=== PATIENT | male | born 1980 | race African-American/Black ===

== ENCOUNTER 2018-09-19 15:54 | Inpatient (IN) | payer OTHER ==
[2018-09-19 17:38] VITALS: BMI 20.2
--- NOTE | 2018-09-19 19:00 | HP ---
CIWA Score Nausea/Vomitin Muscle Tremors: 2 Anxiety: 2 Agitation: 2 Paroxysmal Sweats: 1-Minimal Palms Moist Orientation: 0-Oriented Tacttile Disturbances: 1-Very Mild Itch/Numbness Auditory Disturbances: 1-Very Mild Visual Disturbances: 0-None Headache: 2-Mild CIWA-Ar Total Score: 13 - Admission Criteria OASAS Guidelines: Admission for Medically Managed Detox: Requires at least one of the followin. CIWA greater than 12 2. Seizures within the past 24 hours 3. Delirium tremens within the past 24 hours 4. Hallucinations within the past 24 hours 5. Acute intervention needed for co occurring medical disorder 6. Acute intervention needed for co occurring psychiatric disorder 7. Severe withdrawal that cannot be handled at a lower level of care (continued vomiting, continued diarrhea, abnormal vital signs) requiring intravenous medication and/or fluids 8. Patient presents the following: CIWA greater than 12 Admission Criteria Met: Admission criteria met Admission ROS S - [facility] Chief Complaint: i need help to stop drinking alcohol,marijuana,cocaine dependence Allergies/Adverse Reactions: Allergies Allergy/AdvReac Type Severity Reaction Status Date / Time No Known Allergies Allergy Verified 09/19/18 18:48 History of Present Illness: this 38 years old male with alcohol and marijuana dependence,cocaine dependence, seeking detox,never been in detox before syncope nicotine dependence no significant period of sobriety history of wpw,irregularity of heart beat,since 01/28 ,supposed to take asa 325 mgs po daily,non compliance,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 [place] Exam Limitations: No Limitations - Ebola screening Have you traveled outside of the country in the last 21 days: No (N) Have you had contact with anyone from an Ebola affected area: No Have you been sick,other than usual withdrawal symptoms: No Do you have a fever: No - Review of Systems Constitutional: Loss of Appetite, Malaise, Night Sweats, Changes in sleep, Weakness EENT: reports: Nose Congestion Respiratory: reports: No Symptoms reported Cardiac: reports: No Symptoms Reported GI: reports: Nausea, Poor Appetite, Abdominal cramping : reports: No Symptoms Reported Musculoskeletal: reports: Back Pain, Muscle Pain Integumentary: reports: Dryness Neuro: reports: Headache, Tremors Endocrine: reports: No Symptoms Reported Hematology: reports: No Symptoms Reported Psychiatric: reports: No Sypmtoms Reported, Judgement Intact, Mood/Affect Appropiate, Orientated x3 Other Systems: Reviewed and Negative Patient History - Patient Medical History Hx Anemia: No Hx Asthma: No Hx Chronic Obstructive Pulmonary Disease (COPD): No Hx Cancer: No Hx Cardiac Disorders: No Hx Congestive Heart Failure: No Hx Hypertension: No Hx Hypercholesterolemia: No Hx Pacemaker: No HX Cerebrovascular Accident: No Hx Seizures: No Hx Dementia: No Hx Diabetes: No Hx Gastrointestinal Disorders: No Hx Sexually Transmitted Disorders: No Hx Renal Disease (ESRD): No Hx Thyroid Disease: No Hx Human Immunodeficiency Virus (HIV): No (last hiv test 10/02 negative) Hx Hepatitis C: No Hx Depression: No Hx Suicide Attempt: No Hx Bipolar Disorder: No Hx Schizophrenia: No Other Medical History: no suicidal,no homicidal - Patient Surgical History Past Surgical History: No - PPD History Previous Implant?: Yes Documented Results: Negative w/o proof Implanted On Prior [facility] Admission?: No PPD to be Administered?: Yes - Smoking Cessation Smoking history: Current every day smoker Have you smoked in the past 12 months: Yes Aproximately how many cigarettes per day: 5 Cigars Per Day: 0 Hx Chewing Tobacco Use: No Initiated information on smoking cessation: Yes 'Breaking Loose' booklet given: 09/19/18 - Substance & Tx. History Hx Alcohol Use: Yes Hx Substance Use: Yes Substance Use Type: Alcohol, Cocaine, Marijuana Hx Substance Use Treatment: No - Substances Abused Alcohol Route: Oral Frequency: Daily Amount used: LIQUOR- 4 PINTS Age of first use: 36 Date of Last Use: 09/19/18 Marijuana/Hashish Route: Smoking Frequency: Daily Amount used: 7 JOINTS Age of first use: 19 Date of Last Use: 09/19/18 Cocaine Route: Inhalation Frequency: 1-3 times last 30 days Amount used: 20$ Age of first use: 38 Date of Last Use: 09/18/18 Family Disease History - Family Disease History Family History: Denies Admission Physical Exam BHS - Vital Signs Vital Signs: Vital Signs - 24 hr 09/19/18 17:35 Temperature 98.1 F Pulse Rate 86 Respiratory 18 Rate Blood Pressure 143/86 - Physical General Appearance: Yes: Moderate Distress, Tremorous, Irritable, Sweating, Anxious HEENTM: Yes: Normal ENT Inspection, MIGUEL A, Pharynx Normal Respiratory: Yes: Lungs Clear, Normal Breath Sounds, No Respiratory Distress Neck: Yes: Within Normal Limits, Supple, Trachea in good position Breast: Yes: Within Normal Limits Cardiology: Yes: Within Normal Limits, Regular Rhythm, Regular Rate, S1, S2 Abdominal: Yes: Within Normal Limits, Normal Bowel Sounds, Non Tender, Flat, Soft Genitourinary: Yes: Within Normal Limits Back: Yes: Within Normal Limits, Normal Inspection, Muscle Spasm Musculoskeletal: Yes: Back pain, Muscle Pain Extremities: Yes: Within Normal Limits, Tremors Neurological: Yes: rapid outsole stitcher II-XII NML intact, Fully Oriented, Alert, Motor Strength 5/5 Integumentary: Yes: Dry Lymphatic: Yes: Within Normal Limits - Diagnostic (1) Alcohol dependence with uncomplicated withdrawal Current Visit: Yes Status: Acute (2) Cannabis dependence Current Visit: Yes Status: Acute (3) Cocaine abuse Current Visit: Yes Status: Acute (4) Syncope Current Visit: Yes Status: Acute (5) Nicotine dependence Current Visit: Yes Status: Acute (6) History of Fcaok-Xypaahibs-Ybggc (WPW) syndrome Current Visit: Yes Status: Acute Cleared for Admission [facility] - Detox or Rehab [facility] Level of Care: Medically Managed Detox Regimen/Protocol: Librium [facility] Breath Alcohol Content Breath Alcohol Content: 0.240 Urine Drug Screen - Results Drug Screen Negative: No Urine Drug Screen Results: THC-Marijuana, SIMEON-Cocaine
[2018-09-19] MEDS ORDERED: NICOTINE POLACRILEX 2 MG GUM BC PRN (19:17)
[2018-09-19] MEDS ORDERED: guaiFENesin/D-METHORPHAN HB 10 ML UNIT-DOSE CUPS PO PRN (19:17)
[2018-09-19] MEDS ORDERED: MAGNESIUM CITRATE 300 ML BOTTLE PO PRN (19:17)
[2018-09-19] MEDS ORDERED: ACETAMINOPHEN 325 MG TABLET (FP) PO PRN (19:17)
[2018-09-19] MEDS ORDERED: IBUPROFEN 400 MG TABLET (FP) PO PRN (19:17)
[2018-09-19] MEDS ORDERED: MAG HYDROX/AL HYDROX/SIMETH 30 ML UNIT-DOSE CUP PO PRN (19:17)
[2018-09-19] MEDS ORDERED: MENTHOL/PHENOL 1 EACH UD MM PRN (19:17)
[2018-09-19] MEDS ORDERED: LOPERAMIDE HCL 2 MG CAPSULE PO PRN (19:17)
[2018-09-19] MEDS ORDERED: MAGNESIUM HYDROX 2400MG/30ML ORAL SUSPENSION 30 ML CUP PO PRN (19:17)
[2018-09-19] MEDS ORDERED: P-EPHED 60MG/TRIPROLIDI 2.5MG TABLET PO PRN (19:17)
[2018-09-19] MEDS ORDERED: hydrOXYzine PAMOATE 50 MG CAPSULE (FP) PO PRN (19:17)
[2018-09-19] MEDS ORDERED: chlordiazePOXIDE HCL 25 MG CAPSULE PO PRN (19:17)
[2018-09-19] MEDS ORDERED: MELATONIN 5 MG TABLETS PO PRN (22:00)
[2018-09-19] MEDS ORDERED: THIAMINE HCL 100 MG TABLET (FP) PO SCH (22:00)
[2018-09-19] MEDS: chlordiazePOXIDE HCL 25 MG CAPSULE PO SCH (22:23)
[2018-09-20] MEDS: chlordiazePOXIDE HCL 25 MG CAPSULE PO SCH ×2 (06:03→10:17)
[2018-09-20 07:28] VITALS: BP 151/64; TEMP 98.1
--- NOTE | 2018-09-20 09:45 | EKG ---
Test Reason : Blood Pressure : / mmHG Vent. Rate : 102 BPM Atrial Rate : 102 BPM P-R Int : 130 ms QRS Dur : 084 ms QT Int : 372 ms P-R-T Axes : 078 073 058 degrees QTc Int : 484 ms SINUS TACHYCARDIA OTHERWISE NORMAL ECG NO PREVIOUS ECGS AVAILABLE Confirmed by TRINY MICHELLE MD ([id number]) on 09/20/2018 9:45:08 AM Referred By: Confirmed By:TRINY MICHELLE MD
[2018-09-20] MEDS ORDERED: NICOTINE 21 MG/24 HOURS TOPICAL PATCH TD SCH (10:00)
[2018-09-20] MEDS ORDERED: ASPIRIN 325 MG TABLET PO SCH (10:00)
[2018-09-20] MEDS ORDERED: PRENATAL VITAMINS W/ FOLIC ACID TABLET (FP) PO SCH (10:00)
[2018-09-20 10:17] LABS: HEMATOCRIT 37.6 % (35.4-49); HEMOGLOBIN 13.3 GM/dL (11.7-16.9); MCH 36.1 pg (25.7-33.7); MCHC 35.5 g/dl (32.0-35.9); MEAN CELL VOLUME 101.7 fl (80-96); MEAN PLT VOLUME 8.3 fl (7.5-11.1); PLATELET COUNT 159 K/MM3 (134-434); RBC 3.69 M/mm3 (4.00-5.60); RDW 13.1 % (11.9-15.9); WHITE BLOOD COUNT 4.5 K/mm3 (4.0-10.0)
[2018-09-20 10:18] LABS: ALBUMIN 3.6 g/dl (3.4-5.0); ALK PHOS 90 U/L (45-117); ANION GAP 9 MMOL/L (8-16); BILIRUBIN,TOTAL 1.1 mg/dL (0.2-1); BLOOD UREA NITROGEN 13 mg/dL (7-18); CALCIUM 8.6 mg/dL (8.5-10.1); CHLORIDE 100 mmol/L (98-107); CO2 29 mmol/L (21-32); CREATININE 1.2 mg/dL (0.55-1.3); GLUCOSE,RANDOM 123 mg/dL (74-106); POTASSIUM 3.8 mmol/L (3.5-5.1); SGOT/AST 47 U/L (15-37); SGPT/ALT 31 U/L (13-61); SODIUM 137 mmol/L (136-145)
[2018-09-20 10:21] VITALS: PULSE 77
--- NOTE | 2018-09-20 12:54 | PN ---
S CIWA - CIWA Score Nausea/Vomitin Muscle Tremors: 3 Anxiety: 4-Mod. Anxious/Guarded Agitation: 3 Paroxysmal Sweats: No Perspiration Orientation: 0-Oriented Tacttile Disturbances: 2-Mild Itch/Numbness/Burn Auditory Disturbances: 0-None Visual Disturbances: 1-Very Mild Sensitivity Headache: 0-None Present CIWA-Ar Total Score: 16 BHS Progress Note (SOAP) Subjective: Tremors, Anxious, Nausea, Body Aches. Objective: PATIENT A & O X 3, OBSERVED AMBULATING ON UNIT. IN NO ACUTE DISTRESS. 09/20/18 12:52 Vital Signs Temperature 98.1 F 09/20/18 10:21 Pulse Rate 77 09/20/18 10:21 Respiratory Rate 18 09/20/18 10:21 Blood Pressure 151/64 09/20/18 10:21 O2 Sat by Pulse Oximetry (%) Laboratory Tests 09/20/18 09/20/18 09/20/18 07:00 07:00 07:00 WBC 4.5 RBC 3.69 L Hgb 13.3 Hct 37.6 MCV 101.7 H MCH 36.1 H MCHC 35.5 RDW 13.1 Plt Count 159 MPV 8.3 Sodium 137 Potassium 3.8 Chloride 100 Carbon Dioxide 29 Anion Gap 9 BUN 13 Creatinine 1.2 Creat Clearance w eGFR > 60 Random Glucose 123 H Calcium 8.6 Total Bilirubin 1.1 H AST 47 H ALT 31 Alkaline Phosphatase 90 Total Protein 7.0 Albumin 3.6 RPR Titer HIV 1&2 Antibody Screen Negative HIV P24 Antigen Negative 09/20/18 07:00 WBC RBC Hgb Hct MCV MCH MCHC RDW Plt Count MPV Sodium Potassium Chloride Carbon Dioxide Anion Gap BUN Creatinine Creat Clearance w eGFR Random Glucose Calcium Total Bilirubin AST ALT Alkaline Phosphatase Total Protein Albumin RPR Titer Nonreactive HIV 1&2 Antibody Screen HIV P24 Antigen LABS NOTED. Assessment: 09/20/18 12:52 WITHDRAWAL SYMPTOMS. Plan: CONTINUE DETOX.
--- NOTE | 2018-09-20 12:58 | DS ---
[facility] Detox Discharge Summary Admission Date: 09/19/18 Discharge Date: 09/20/18 - History Present History: Alcohol Dependence, Cannabis Dependence, Cocaine Dependence Additional Comments: PATIENT DOES NOT WISH TO REMAIN TO COMPLETE DETOX REGIMEN. RISKS OF LEAVING DETOX UNIT AGAINST MEDICAL ADVICE AND PRIOR TO COMPLETION OF DETOX REGIMEN EXPLAINED TO PATIENT. PATIENT ADVISED TO GO IMMEDIATELY TO NEAREST ER SHOULD ANY INTOLERABLE DETOX SYMPTOMS DEVELOP AT ANY TIME. PATIENT VERBALIZED UNDERSTANDING OF ALL INFORMATION / RECOMMENDATIONS PRESENTED TO HIM PRIOR TO DEPARTURE FROM DETOX UNIT. PATIENT LEFT DETOX UNIT IN STABLE MEDICAL CONDITION. Pertinent Past History: History of Ujarz-Iuwxsqkjk-Nndpf (WPW) Syndrome, Nicotine Dependence, History of Syncope. - Physical Exam Results Vital Signs: Vital Signs Temperature 98.1 F 09/20/18 10:21 Pulse Rate 77 09/20/18 10:21 Respiratory Rate 18 09/20/18 10:21 Blood Pressure 151/64 09/20/18 10:21 O2 Sat by Pulse Oximetry (%) Pertinent Admission Physical Exam Findings: WITHDRAWAL SYMPTOMS. Laboratory Tests 09/20/18 09/20/18 09/20/18 07:00 07:00 07:00 WBC 4.5 RBC 3.69 L Hgb 13.3 Hct 37.6 MCV 101.7 H MCH 36.1 H MCHC 35.5 RDW 13.1 Plt Count 159 MPV 8.3 Sodium 137 Potassium 3.8 Chloride 100 Carbon Dioxide 29 Anion Gap 9 BUN 13 Creatinine 1.2 Creat Clearance w eGFR > 60 Random Glucose 123 H Calcium 8.6 Total Bilirubin 1.1 H AST 47 H ALT 31 Alkaline Phosphatase 90 Total Protein 7.0 Albumin 3.6 RPR Titer HIV 1&2 Antibody Screen Negative HIV P24 Antigen Negative 09/20/18 07:00 WBC RBC Hgb Hct MCV MCH MCHC RDW Plt Count MPV Sodium Potassium Chloride Carbon Dioxide Anion Gap BUN Creatinine Creat Clearance w eGFR Random Glucose Calcium Total Bilirubin AST ALT Alkaline Phosphatase Total Protein Albumin RPR Titer Nonreactive HIV 1&2 Antibody Screen HIV P24 Antigen LABS NOTED. - Treatment Hospital Course: Detoxed Safely - Medication Discharge Medications: Ambulatory Orders Aspirin [ASA -] 325 mg PO DAILY 09/19/18 - Diagnosis (1) Alcohol dependence with uncomplicated withdrawal Current Visit: Yes Status: Acute (2) Cannabis dependence Current Visit: Yes Status: Acute (3) Cocaine abuse Current Visit: Yes Status: Acute (4) History of Cdcan-Qntiqbznl-Kpjyu (WPW) syndrome Current Visit: Yes Status: Chronic (5) Nicotine dependence Current Visit: Yes Status: Chronic Qualifiers: Nicotine product type: cigarettes Substance use status: uncomplicated Qualified Code(s): F17.210 - Nicotine dependence, cigarettes, uncomplicated (6) Syncope Current Visit: Yes Status: Acute Qualifiers: Syncope type: unspecified Qualified Code(s): R55 - Syncope and collapse - AMA Did Patient Leave Against Medical Advice: Yes (PATIENT DID NOT WISH TO REMAIN TO COMPLETE DETOX REGIMEN.)
[2018-09-20] MEDS ORDERED: chlordiazePOXIDE HCL 25 MG CAPSULE PO SCH (23:00)
[2018-09-21] MEDS ORDERED: chlordiazePOXIDE 5 MG CAPSULE PO SCH (23:00)
[2018-09-22] MEDS ORDERED: chlordiazePOXIDE HCL 10 MG CAPSULE PO SCH (23:00)
== END 2018-09-20 15:24 | disposition left against medical advice (07) | DRG 770 ==
LOC: YASAS 15:54 → Y6N 19:09
PROC: HZ2ZZZZ Detoxification Services for Substance Abuse Treatment (ICD-10-PCS; principal; 2018-09-19)
DX: F10.230 Alcohol dependence with withdrawal, uncomplicated (principal); F14.20 Cocaine dependence, uncomplicated; F12.20 Cannabis dependence, uncomplicated; F17.210 Nicotine dependence, cigarettes, uncomplicated; R55 Syncope and collapse; Z86.79 Personal history of other diseases of the circulatory system
CPT/HCPCS: 36415; 80053; 85027; 86593; 87389; 93005; 93010

== ENCOUNTER 2018-11-13 15:29 | Inpatient (IN) | payer OTHER ==
[2018-11-13 19:12] VITALS: BMI 22.6
--- NOTE | 2018-11-13 20:07 | HP ---
CIWA Score Nausea/Vomitin Muscle Tremors: 4-Moderate,w/Arms Extend Anxiety: 3 Agitation: 0-Normal Activity Paroxysmal Sweats: 3 Orientation: 0-Oriented Tacttile Disturbances: 0-None Auditory Disturbances: 0-None Visual Disturbances: 0-None Headache: 3-Moderate CIWA-Ar Total Score: 16 - Admission Criteria OASAS Guidelines: Admission for Medically Managed Detox: Requires at least one of the followin. CIWA greater than 12 2. Seizures within the past 24 hours 3. Delirium tremens within the past 24 hours 4. Hallucinations within the past 24 hours 5. Acute intervention needed for co occurring medical disorder 6. Acute intervention needed for co occurring psychiatric disorder 7. Severe withdrawal that cannot be handled at a lower level of care (continued vomiting, continued diarrhea, abnormal vital signs) requiring intravenous medication and/or fluids 8. Admission ROS [facility] Chief Complaint: Alcohol withdrawal symptoms Allergies/Adverse Reactions: Allergies Allergy/AdvReac Type Severity Reaction Status Date / Time No Known Allergies Allergy Verified 11/13/18 18:59 History of Present Illness: 38 years old male with a long history of alcohol dependence is seeking admission to detox. Patient has been in previous detox and reports insignificant period of sobriety. 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 He denies suicide attempt and suicidal ideation at this time. Exam Limitations: No Limitations - Ebola screening Have you traveled outside of the country in the last 21 days: No (N) Have you had contact with anyone from an Ebola affected area: No Have you been sick,other than usual withdrawal symptoms: No Do you have a fever: No - Review of Systems Constitutional: Chills, Loss of Appetite, Night Sweats, Changes in sleep EENT: reports: No Symptoms Reported Respiratory: reports: No Symptoms reported Cardiac: reports: No Symptoms Reported GI: reports: Nausea, Poor Appetite, Poor Fluid Intake, Vomiting ( x 4) : reports: No Symptoms Reported Musculoskeletal: reports: No Symptoms Reported Integumentary: reports: Dryness, Flushing Neuro: reports: Headache, Tremors Endocrine: reports: No Symptoms Reported Hematology: reports: No Symptoms Reported Psychiatric: reports: Mood/Affect Appropiate, Orientated x3 Other Systems: Reviewed and Negative Patient History - Patient Medical History Hx Anemia: No Hx Asthma: No Hx Chronic Obstructive Pulmonary Disease (COPD): No Hx Cancer: No Hx Cardiac Disorders: Yes (Bronson parkinson Syndrome) Hx Congestive Heart Failure: No Hx Hypertension: No Hx Hypercholesterolemia: No Hx Pacemaker: No HX Cerebrovascular Accident: No Hx Seizures: No Hx Dementia: No Hx Diabetes: No Hx Gastrointestinal Disorders: No Hx Genitourinary Disorders: No Hx Sexually Transmitted Disorders: No Hx Renal Disease (ESRD): No Hx Thyroid Disease: No Hx Human Immunodeficiency Virus (HIV): No (Negative October 2018) Hx Hepatitis C: No Hx Depression: No Hx Suicide Attempt: No (Denies suicidal ideation at this time) Hx Bipolar Disorder: No Hx Schizophrenia: No - Patient Surgical History Past Surgical History: No Hx Neurologic Surgery: No Hx Cataract Extraction: No Hx Cardiac Surgery: No Hx Lung Surgery: No Hx Abdominal Surgery: No Hx Appendectomy: No Hx Cholecystectomy: No Hx Genitourinary Surgery: No Hx Orthopedic Surgery: No Anesthesia Reaction: No - PPD History Previous Implant?: Yes Date: 09/21/18 Results: AMA PPD to be Administered?: Yes - Reproductive History Patient is a Female of Child Bearing Age (11 -55 yrs old): No (MALE) - Smoking Cessation Smoking history: Current every day smoker Have you smoked in the past 12 months: Yes Aproximately how many cigarettes per day: 5 Cigars Per Day: 0 Hx Chewing Tobacco Use: No Initiated information on smoking cessation: Yes 'Breaking Loose' booklet given: 11/13/18 - Substance & Tx. History Hx Alcohol Use: Yes Hx Substance Use: Yes Substance Use Type: Alcohol, Marijuana Hx Substance Use Treatment: Yes ([facility]) - Substances Abused Alcohol Route: Oral Frequency: Daily Amount used: LIQUOR- 3 PINTS Age of first use: 30 Date of Last Use: 11/13/18 Marijuana/Hashish Frequency: Daily Amount used: $10 Age of first use: 22 Date of Last Use: 11/13/18 Family Disease History - Family Disease History Family History: Denies Admission Physical Exam S - Vital Signs Vital Signs: Vital Signs - 24 hr 11/13/18 18:50 Temperature 98.6 F Pulse Rate 113 H Respiratory 18 Rate Blood Pressure 147/84 - Physical General Appearance: Yes: Moderate Distress, Alcohol on Breath, Tremorous, Sweating, Anxious HEENTM: Yes: Normal ENT Inspection, Normocephalic, Normal Voice, MIGUEL A Respiratory: Yes: Normal Breath Sounds, No Respiratory Distress Breast: Yes: Breast Exam Deferred Cardiology: Yes: Tachycardia, Irregular Abdominal: Yes: Normal Bowel Sounds Genitourinary: Yes: Within Normal Limits Back: Yes: Normal Inspection Musculoskeletal: Yes: Within Normal Limits Extremities: Yes: Tremors Neurological: Yes: Alert, Normal Mood/Affect Integumentary: Yes: Within Normal Limits Lymphatic: Yes: Within Normal Limits - Diagnostic (1) Alcohol dependence with uncomplicated withdrawal Current Visit: No Status: Acute (2) Cannabis dependence Current Visit: No Status: Acute (3) History of Olxhd-Jlspiabka-Gwnfj (WPW) syndrome Current Visit: Yes Status: Chronic (4) Nicotine dependence Current Visit: Yes Status: Chronic Qualifiers: Nicotine product type: cigarettes Substance use status: uncomplicated Qualified Code(s): F17.210 - Nicotine dependence, cigarettes, uncomplicated Cleared for Admission [facility] - Detox or Rehab [facility] Level of Care: Medically Managed Detox Regimen/Protocol: Librium S Breath Alcohol Content Breath Alcohol Content: 0.196 Urine Drug Screen - Results Drug Screen Negative: No Urine Drug Screen Results: THC-Marijuana Inpatient Rehab Admission - Rehab Decision to Admit Inpatient rehab admission?: No
[2018-11-13] MEDS ORDERED: P-EPHED 60MG/TRIPROLIDI 2.5MG TABLET PO PRN (20:24)
[2018-11-13] MEDS ORDERED: IBUPROFEN 400 MG TABLET (FP) PO PRN (20:24)
[2018-11-13] MEDS ORDERED: NICOTINE POLACRILEX 2 MG GUM BC PRN (20:24)
[2018-11-13] MEDS ORDERED: ACETAMINOPHEN 325 MG TABLET (FP) PO PRN (20:24)
[2018-11-13] MEDS ORDERED: guaiFENesin/D-METHORPHAN HB 10 ML UNIT-DOSE CUPS PO PRN (20:24)
[2018-11-13] MEDS ORDERED: MENTHOL/PHENOL 1 EACH UD MM PRN (20:24)
[2018-11-13] MEDS ORDERED: MAG HYDROX/AL HYDROX/SIMETH 30 ML UNIT-DOSE CUP PO PRN (20:24)
[2018-11-13] MEDS ORDERED: MAGNESIUM CITRATE 300 ML BOTTLE PO PRN (20:24)
[2018-11-13] MEDS ORDERED: chlordiazePOXIDE HCL 25 MG CAPSULE PO PRN (20:24)
[2018-11-13] MEDS ORDERED: MAGNESIUM HYDROX 2400MG/30ML ORAL SUSPENSION 30 ML CUP PO PRN (20:24)
[2018-11-13] MEDS ORDERED: LOPERAMIDE HCL 2 MG CAPSULE PO PRN (20:24)
[2018-11-13] MEDS ORDERED: THIAMINE HCL 100 MG TABLET (FP) PO SCH (22:00)
[2018-11-13] MEDS ORDERED: MELATONIN 5 MG TABLETS PO PRN (22:00)
[2018-11-13] MEDS ORDERED: INSULIN LISPRO 2 UNIT SQ SCH (22:00)
[2018-11-13] MEDS: chlordiazePOXIDE HCL 25 MG CAPSULE PO SCH (22:09)
[2018-11-14] MEDS: chlordiazePOXIDE HCL 25 MG CAPSULE PO SCH (05:52)
[2018-11-14] MEDS ORDERED: INSULIN (NOVOLOG) ASPART 100 UNITS/ML 10ML VIAL SQ SCH (07:00)
[2018-11-14] MEDS ORDERED: NICOTINE 14 MG/24 HOURS TOPICAL PATCH TD SCH (10:00)
[2018-11-14] MEDS ORDERED: ASPIRIN 325 MG TABLET PO SCH (10:00)
[2018-11-14] MEDS ORDERED: PRENATAL VITAMINS W/ FOLIC ACID TABLET (FP) PO SCH (10:00)
[2018-11-14 10:46] LABS: HEMATOCRIT 38.4 % (35.4-49); HEMOGLOBIN 13.4 GM/dL (11.7-16.9); MCHC 34.8 g/dl (32.0-35.9); MEAN CELL VOLUME 106.2 fl (80-96); MEAN PLT VOLUME 8.2 fl (7.5-11.1); PLATELET COUNT 149 K/MM3 (134-434); RBC 3.62 M/mm3 (4.00-5.60); RDW 15.2 % (11.9-15.9); WHITE BLOOD COUNT 3.4 K/mm3 (4.0-10.0)
[2018-11-14 10:47] VITALS: BP 128/65; PULSE 84; TEMP 98.3
[2018-11-14 11:10] LABS: ALBUMIN 3.5 g/dl (3.4-5.0); ALK PHOS 90 U/L (45-117); ANION GAP 5 MMOL/L (8-16); BILIRUBIN,TOTAL 0.7 mg/dL (0.2-1); BLOOD UREA NITROGEN 11 mg/dL (7-18); CHLORIDE 103 mmol/L (98-107); CO2 31 mmol/L (21-32); CREATININE 0.9 mg/dL (0.55-1.3); GLUCOSE,RANDOM 82 mg/dL (74-106); POTASSIUM 3.8 mmol/L (3.5-5.1); SGOT/AST 63 U/L (15-37); SGPT/ALT 49 U/L (13-61); SODIUM 140 mmol/L (136-145); TOT PROT 6.9 g/dl (6.4-8.2)
--- NOTE | 2018-11-14 12:28 | DS ---
[facility] Detox Discharge Summary Admission Date: 11/13/18 Discharge Date: 11/14/18 - History Present History: Alcohol Dependence Additional Comments: Patient left AMA despite encouragement to complete detox. Patient stated, "I just want to leave." Patient refused to speak anymore with staff. Patient reported to radio news writer this morning that he was experiencing withdrawal symptoms: sweating, chills, tremor. Patient instructed to call [phone] if feeling sick or withdrawal symptoms and to follow up with his PCP within 3 days in which he verbalized understanding. Patient is A/A/Ox3, in nad, vss, ambulatory. Patient left AMA in stable condition. Pertinent Past History: Cannabis dependence Alcohol dependence WPW Syndrome DMT2 Nicotine dependence - Physical Exam Results Vital Signs: Vital Signs Temperature 98.3 F 11/14/18 10:00 Pulse Rate 84 11/14/18 10:00 Respiratory Rate 18 11/14/18 10:00 Blood Pressure 128/65 11/14/18 10:00 O2 Sat by Pulse Oximetry (%) Pertinent Admission Physical Exam Findings: Withdrawal symptoms Laboratory Tests 11/14/18 11/14/18 11/14/18 05:54 07:35 07:35 WBC 3.4 L RBC 3.62 L Hgb 13.4 Hct 38.4 MCV 106.2 H MCH 37.0 H MCHC 34.8 RDW 15.2 D Plt Count 149 MPV 8.2 Sodium 140 Potassium 3.8 Chloride 103 Carbon Dioxide 31 Anion Gap 5 L BUN 11 Creatinine 0.9 Creat Clearance w eGFR > 60 POC Glucometer 95 Random Glucose 82 Calcium 8.0 L Total Bilirubin 0.7 AST 63 H ALT 49 Alkaline Phosphatase 90 Total Protein 6.9 Albumin 3.5 RPR Titer 11/14/18 07:35 WBC RBC Hgb Hct MCV MCH MCHC RDW Plt Count MPV Sodium Potassium Chloride Carbon Dioxide Anion Gap BUN Creatinine Creat Clearance w eGFR POC Glucometer Random Glucose Calcium Total Bilirubin AST ALT Alkaline Phosphatase Total Protein Albumin RPR Titer Nonreactive Labs reviewed - Medication Discharge Medications: Ambulatory Orders Aspirin [ASA -] 325 mg PO DAILY 09/19/18 Insulin Lispro [Humalog] 0 unit SQ BID 11/13/18 - Diagnosis (1) Diabetes mellitus Status: Chronic (2) Alcohol dependence with uncomplicated withdrawal Status: Acute (3) Cannabis dependence Status: Chronic (4) History of Olaeq-Nvbjwfuyo-Jdrqe (WPW) syndrome Status: Chronic (5) Nicotine dependence Status: Chronic Qualifiers: Nicotine product type: cigarettes Substance use status: uncomplicated Qualified Code(s): F17.210 - Nicotine dependence, cigarettes, uncomplicated - AMA Did Patient Leave Against Medical Advice: Yes (Instructed to call [phone] if feeling sick or withdrawal symptoms)
[2018-11-14] MEDS ORDERED: chlordiazePOXIDE HCL 25 MG CAPSULE PO SCH (23:00)
--- NOTE | 2018-11-15 11:08 | EKG ---
Test Reason : Blood Pressure : / mmHG Vent. Rate : 115 BPM Atrial Rate : 115 BPM P-R Int : 120 ms QRS Dur : 086 ms QT Int : 326 ms P-R-T Axes : 076 077 063 degrees QTc Int : 450 ms SINUS TACHYCARDIA OTHERWISE NORMAL ECG WHEN COMPARED WITH ECG OF 19-SEP-2018 19:47, NO SIGNIFICANT CHANGE WAS FOUND Confirmed by TRINY MICHELLE MD ([id number]) on 11/15/2018 11:07:58 AM Referred By: Confirmed By:TRINY MICHELLE MD
[2018-11-15] MEDS ORDERED: chlordiazePOXIDE 5 MG CAPSULE PO SCH (23:00)
[2018-11-16] MEDS ORDERED: chlordiazePOXIDE HCL 10 MG CAPSULE PO SCH (23:00)
== END 2018-11-14 09:53 | disposition left against medical advice (07) | DRG 770 ==
LOC: YASAS 15:29 → Y6N 20:55
PROVIDERS: ADMIT Surgery; ATTEND Surgery
PROC: HZ2ZZZZ Detoxification Services for Substance Abuse Treatment (ICD-10-PCS; principal; 2018-11-13)
DX: F10.230 Alcohol dependence with withdrawal, uncomplicated (principal); F12.20 Cannabis dependence, uncomplicated; F17.210 Nicotine dependence, cigarettes, uncomplicated; E11.9 Type 2 diabetes mellitus without complications; I45.6 Pre-excitation syndrome; R00.0 Tachycardia, unspecified
CPT/HCPCS: 36415; 80053; 82962; 85027; 86593; 93005; 93010

== ENCOUNTER 2018-11-29 18:34 | Inpatient (IN) | payer OTHER ==
[2018-11-29 19:59] VITALS: BMI 22.4
--- NOTE | 2018-11-29 22:36 | HP ---
CIWA Score Nausea/Vomitin-Mild Nausea/No Vomiting Muscle Tremors: None Anxiety: 4-Mod. Anxious/Guarded Agitation: 4-Moderately Restless Paroxysmal Sweats: 3 Orientation: 0-Oriented Tacttile Disturbances: 2-Mild Itch/Numbness/Burn Auditory Disturbances: 0-None Visual Disturbances: 0-None Headache: 0-None Present CIWA-Ar Total Score: 14 - Admission Criteria OAS Guidelines: Admission for Medically Managed Detox: Requires at least one of the followin. CIWA greater than 12 2. Seizures within the past 24 hours 3. Delirium tremens within the past 24 hours 4. Hallucinations within the past 24 hours 5. Acute intervention needed for co occurring medical disorder 6. Acute intervention needed for co occurring psychiatric disorder 7. Severe withdrawal that cannot be handled at a lower level of care (continued vomiting, continued diarrhea, abnormal vital signs) requiring intravenous medication and/or fluids 8. Patient presents the following: CIWA greater than 12 Admission Criteria Met: Admission criteria met Admission ROS [facility] Chief Complaint: C/O WORSENING WITHDRAWAL SX'S. SEEKING DETOX Allergies/Adverse Reactions: Allergies Allergy/AdvReac Type Severity Reaction Status Date / Time No Known Allergies Allergy Verified 11/13/18 18:59 History of Present Illness: 38 Y.O. MALE WITH ALCOHOLISM HERE FOR DETOX. CLIENT IS KNOWN TO THIS PROGRAM. AMA 2 WEEKS AG O BECAUSE " I WAS NOT READY". PRESENTS TODAY WITH C/O WORSENING WITHDRAWAL SX'S CIWA 14. CLIENT DENIES MEDICAL AND PSYCH HX. BUT DOES ADMIT TO AGITATION, FEELING OF DEPRESSION BUT CESAR SI/HI AND ELEVATED BP'S ASSOCIATED WITH WITHDRAWAl sx's. HE REPORTS DRINKING ABOUT 3 PINTS DAILY. LAST DRINK EALRIER TODAY. DENIES ANY SIGNIFICANT PERIOD OF CLEAN TIME DUE TO WITHDRAWALS AND CRAVINGS. UTOX + THC, BZO, DOUG 0.113. LIVES WITH FAMILY, EMPLOYED, DENIES LEGALS. Exam Limitations: No Limitations - Ebola screening Have you traveled outside of the country in the last 21 days: No (N) Have you had contact with anyone from an Ebola affected area: No Have you been sick,other than usual withdrawal symptoms: No Do you have a fever: No - Review of Systems Constitutional: Chills, Loss of Appetite, Malaise, Night Sweats, Changes in sleep, Unintentional Wgt. Loss EENT: reports: Nose Congestion Respiratory: reports: No Symptoms reported Cardiac: reports: No Symptoms Reported GI: reports: Nausea, Vomiting : reports: No Symptoms Reported Musculoskeletal: reports: Back Pain Integumentary: reports: Sweating Neuro: reports: Tremors Endocrine: reports: No Symptoms Reported Hematology: reports: No Symptoms Reported Psychiatric: reports: Orientated x3, Agitated (IRRITABLE), Anxious, Depressed Other Systems: Reviewed and Negative Patient History - Patient Medical History Hx Anemia: No Hx Asthma: No Hx Chronic Obstructive Pulmonary Disease (COPD): No Hx Cancer: No Hx Cardiac Disorders: Yes (Bronson parkinson Syndrome) Hx Congestive Heart Failure: No Hx Hypertension: No Hx Hypercholesterolemia: No Hx Pacemaker: No HX Cerebrovascular Accident: No Hx Seizures: No Hx Dementia: No Hx Diabetes: No Hx Gastrointestinal Disorders: No Hx Genitourinary Disorders: No Hx Sexually Transmitted Disorders: No Hx Renal Disease (ESRD): No Hx Thyroid Disease: No Hx Human Immunodeficiency Virus (HIV): No Hx Hepatitis C: No Hx Depression: No Hx Suicide Attempt: No (Denies suicidal ideation at this time) Hx Bipolar Disorder: No Hx Schizophrenia: No - Patient Surgical History Past Surgical History: No Hx Neurologic Surgery: No Hx Cataract Extraction: No Hx Cardiac Surgery: No Hx Lung Surgery: No Hx Breast Surgery: No Hx Breast Biopsy: No Hx Abdominal Surgery: No Hx Appendectomy: No Hx Cholecystectomy: No Hx Genitourinary Surgery: No Hx Section: No Hx Orthopedic Surgery: No Anesthesia Reaction: No - PPD History Previous Implant?: Yes Documented Results: Negative w/o proof Implanted On Prior [facility] Admission?: Yes Date: 09/21/18 Results: AMA PPD to be Administered?: Yes - Smoking Cessation Smoking history: Current every day smoker Have you smoked in the past 12 months: Yes Aproximately how many cigarettes per day: 20 Cigars Per Day: 0 Hx Chewing Tobacco Use: No Initiated information on smoking cessation: Yes 'Breaking Loose' booklet given: 11/29/18 - Substance & Tx. History Hx Alcohol Use: Yes Hx Substance Use: Yes Substance Use Type: Alcohol, Cocaine Hx Substance Use Treatment: Yes ([facility]) - Substances Abused VODKA Route: Oral Frequency: Daily Amount used: 3 PINTS Age of first use: 26 Date of Last Use: 11/29/18 (4 AM) THC Route: Smoking Frequency: Daily Amount used: 4 BLUNTS Age of first use: 19 Date of Last Use: 11/28/18 Family Disease History - Family Disease History Family History: Denies Admission Physical Exam [facility] - Vital Signs Vital Signs: Vital Signs - 24 hr 11/29/18 19:57 Temperature 97.4 F L Pulse Rate 85 Respiratory 18 Rate Blood Pressure 140/85 - Physical General Appearance: Yes: Appropriately Dressed, Mild Distress, Irritable, Sweating, Anxious HEENTM: Yes: EOMI, Normocephalic, Normal Voice, MIGUEL A, Pharynx Normal, Nasal Congestion Respiratory: Yes: Chest Non-Tender, Lungs Clear, Normal Breath Sounds, No Respiratory Distress, No Accessory Muscle Use Neck: Yes: No masses,lesions,Nodules, Supple, Trachea in good position Breast: Yes: Breast Exam Deferred Cardiology: Yes: Regular Rhythm, Regular Rate, S1, S2 Abdominal: Yes: Non Tender, Soft, Increased Bowel Sounds, Protuberent Genitourinary: Yes: Other (NO C/O) Back: Yes: Normal Inspection Musculoskeletal: Yes: full range of Motion, Gait Steady Extremities: Yes: Normal Capillary Refill, Non-Tender Neurological: Yes: Fully Oriented, Alert, Motor Strength 5/5, Depressed Affect Integumentary: Yes: Warm, Moist, Other (LEFT FOREARM WITH SCARS FROM [place]LD [place] JASMINE) Lymphatic: Yes: Within Normal Limits - Diagnostic (1) Cocaine abuse, uncomplicated Current Visit: Yes Status: Acute (2) Cannabis abuse, uncomplicated Current Visit: Yes Status: Acute (3) At risk for dehydration due to poor fluid intake Current Visit: Yes Status: Acute (4) Substance induced mood disorder Current Visit: Yes Status: Acute (5) Alcohol dependence with uncomplicated withdrawal Current Visit: No Status: Acute (6) 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 - Detox or Rehab [facility] Level of Care: Medically Managed Detox Regimen/Protocol: Librium Claeared for Rehab Admission: No S Breath Alcohol Content Breath Alcohol Content: 0.113 Urine Drug Screen - Results Drug Screen Negative: No Urine Drug Screen Results: THC-Marijuana, BZO-Benzodiazepines Inpatient Rehab Admission - Rehab Decision to Admit Inpatient rehab admission?: No
[2018-11-29] MEDS ORDERED: MAG HYDROX/AL HYDROX/SIMETH 30 ML UNIT-DOSE CUP PO PRN (22:44)
[2018-11-29] MEDS ORDERED: NICOTINE POLACRILEX 2 MG GUM BUC PRN (22:44)
[2018-11-29] MEDS ORDERED: chlordiazePOXIDE HCL 25 MG CAPSULE PO PRN (22:44)
[2018-11-29] MEDS ORDERED: IBUPROFEN 400 MG TABLET (FP) PO PRN (22:44)
[2018-11-29] MEDS ORDERED: DICYCLOMINE HCL 10 MG CAPSULE PO PRN (22:44)
[2018-11-29] MEDS ORDERED: ACETAMINOPHEN 325 MG TABLET (FP) PO PRN ×2 (22:44)
[2018-11-29] MEDS ORDERED: hydrOXYzine PAMOATE 25 MG CAPSULE (FP) PO PRN (22:44)
[2018-11-29] MEDS ORDERED: guaiFENesin 200 MG/10 ML 10 ML UNIT-DOSE CUPS PO PRN (22:44)
[2018-11-29] MEDS ORDERED: MENTHOL/PHENOL 1 EACH UD MM PRN (22:44)
[2018-11-29] MEDS ORDERED: BISMUTH SUBSALICYLATE 524 MG/30 ML UD PO PRN (22:44)
[2018-11-29] MEDS ORDERED: P-EPHED 60MG/TRIPROLIDI 2.5MG TABLET PO PRN (22:44)
[2018-11-29] MEDS ORDERED: METHOCARBAMOL 500 MG TABLET PO PRN (22:44)
[2018-11-29] MEDS ORDERED: MAGNESIUM HYDROX 2400MG/30ML ORAL SUSPENSION 30 ML CUP PO PRN (22:44)
[2018-11-29] MEDS ORDERED: MAGNESIUM CITRATE 300 ML BOTTLE PO PRN (22:44)
[2018-11-29] MEDS ORDERED: ONDANSETRON *ODT* 4 MG TABLET SL PRN (22:44)
[2018-11-29] MEDS ORDERED: MELATONIN 5 MG TABLETS PO PRN (22:44)
[2018-11-30] MEDS: chlordiazePOXIDE HCL 25 MG CAPSULE PO SCH ×5 (01:12→22:16)
[2018-11-30] MEDS ORDERED: PRENATAL VITAMINS W/ FOLIC ACID TABLET (FP) PO SCH (10:00)
[2018-11-30] MEDS ORDERED: NICOTINE 14 MG/24 HOURS TOPICAL PATCH TD SCH (10:00)
--- NOTE | 2018-11-30 13:53 | CONSULT ---
[facility] Psychiatric Consult - Data Date of interview: 11/30/18 Admission source: [facility] Identifying data: Readmission to [facility] for this 38 y/o [place]born male self-referred for detoxification (alcohol, cannabis). Interviewed on . Patient is single (common-law), a father of four, domiciled and currently employed. Substance Abuse History: Confirmed by the patient in this interview. Details in current [facility] as follows : Smoking history: Current every day smoker. Have you smoked in the past 12 months: Yes. Aproximately how many cigarettes per day: 20. Cigars Per Day: 0. Hx Chewing Tobacco Use: No. Initiated information on smoking cessation: Yes. 'Breaking Loose' booklet given: 11/29/18. - Substance & Tx. History. Hx Alcohol Use: Yes. Hx Substance Use: Yes. Substance Use Type : Alcohol, Cocaine. Hx Substance Use Treatment: Yes ([facility] - Substances Abused. VODKA. Route: Oral. Frequency: Daily. Amount used: 3 PINTS. Age of first use: 26. Date of Last Use: 11/29/18 (4 AM). THC. Route: Smoking. Frequency: Daily. Amount used: 4 BLUNTS. Age of first use: 19. Date of Last Use: 11/28/18 Medical History: History of Mlcde-Qivkcwbbs-Pbgkp syndrome (WPW). Psychiatric History: Patient denies. Physical/Sexual Abuse/Trauma History: Patient denies. Additional Comment: Urine Drug Screen Results: THC-Marijuana, BZO- Benzodiazepines. Noted. Mental Status Exam - Mental Status Exam Alert and Oriented to: Time, Place, Person Cognitive Function: Good Mood: Hopeful, Euthymic Affect: Appropriate, Normal Range Patient Behavior: Fatigued, Cooperative Speech Pattern: Clear, Appropriate (bilingual = creole + kinyarwanda) Voice Loudness: Normal Thought Process: Intact, Goal Oriented Thought Disorder: Not Present Hallucinations: Denies Suicidal Ideation: Denies Homicidal Ideation: Denies Insight/Judgement: Fair Sleep: Well Appetite: Good Muscle strength/Tone: Normal Gait/Station: Normal Psychiatric Findings - Problem List ([place] 1, 2,3) (1) Alcohol dependence with uncomplicated withdrawal Current Visit: Yes Status: Acute (2) Cannabis dependence Current Visit: Yes Status: Chronic (3) Nicotine dependence Current Visit: Yes Status: Chronic Qualifiers: Nicotine product type: cigarettes Substance use status: uncomplicated Qualified Code(s): F17.210 - Nicotine dependence, cigarettes, uncomplicated - Initial Treatment Plan Initial Treatment Plan: Psychoeducation. Sleep hygiene. AA meetings. Motivational sessions. Groups. Support. Observation.
--- NOTE | 2018-11-30 15:36 | PN ---
S CIWA - CIWA Score Nausea/Vomitin-No Nausea/No Vomiting Muscle Tremors: 1-None Visible, but [place] Anxiety: 1-Mildly Anxious Agitation: 1-Slight > Activity Paroxysmal Sweats: 1-Minimal Palms Moist Orientation: 1-Uncertain about Date Tacttile Disturbances: 0-None Auditory Disturbances: 0-None Visual Disturbances: 0-None Headache: 1-Very Mild CIWA-Ar Total Score: 6 [facility] Progress Note (SOAP) Subjective: long history of hypertension non adherence begin lisinopril 5 mg po daily Objective: 11/30/18 15:38 Vital Signs Temperature 97.7 F 11/30/18 13:32 Pulse Rate 65 11/30/18 13:32 Respiratory Rate 18 11/30/18 13:32 Blood Pressure 125/79 11/30/18 13:32 O2 Sat by Pulse Oximetry (%) readmission last admission a week ago 11/30/18 15:39 Assessment: 11/30/18 15:40 mild withdrawal sx Plan: continue detox
[2018-11-30 20:12] LABS: URINE APPEARANCE CLEAR; URINE BILIRUBIN NEGATIVE (<2.0 mg/dL); URINE COLOR LTYELLOW; URINE GLUCOSE (UA) NEGATIVE (NEGATIVE); URINE KETONE NEGATIVE (NEGATIVE); URINE LEUK ESTERASE NEGATIVE (NEGATIVE); URINE NITRITE NEGATIVE (NEGATIVE); URINE PROTEIN NEGATIVE (NEGATIVE); URINE UROBILINOGEN NEGATIVE mg/dL (0.2-1.0)
[2018-11-30] MEDS ORDERED: THIAMINE HCL 100 MG TABLET (FP) PO SCH (22:00)
[2018-12-01] MEDS: chlordiazePOXIDE HCL 25 MG CAPSULE PO SCH (05:54)
[2018-12-01 06:49] VITALS: BP 122/78; PULSE 56; TEMP 96.4
--- NOTE | 2018-12-01 07:29 | DS ---
[facility] Detox Discharge Summary Admission Date: 11/30/18 Discharge Date: 12/01/18 - History Present History: Alcohol Dependence, Cannabis Dependence, Cocaine Dependence Additional Comments: CLIENT REQUESTED TO SIGN OUT. DID NOT WANT TO SPEAK WITH PROVIDER. STATED " JUST SIGN MY DC PAPERS THAT ALL I WANT FROM YOU" HE THEN PROCEEDED TO WALK AWAY FROM PROVIDER. HE IS A/O X3 NAD AMBULATING W/O DIFFICULTY Vital Signs Temperature 96.4 F L 12/01/18 06:49 Pulse Rate 56 L 12/01/18 06:49 Respiratory Rate 18 12/01/18 06:49 Blood Pressure 122/78 12/01/18 06:49 O2 Sat by Pulse Oximetry (%) Pertinent Past History: NICOTINE DEP WPW SYNDROME - Physical Exam Results Vital Signs: Vital Signs Temperature 96.4 F L 12/01/18 06:49 Pulse Rate 56 L 12/01/18 06:49 Respiratory Rate 18 12/01/18 06:49 Blood Pressure 122/78 12/01/18 06:49 O2 Sat by Pulse Oximetry (%) Pertinent Admission Physical Exam Findings: WITHDRAWAL SX'S Laboratory Tests 11/30/18 11/30/18 12/01/18 13:30 16:53 05:52 POC Glucometer 103 93 Urine Color Ltyellow Urine Appearance Clear Urine pH 7.0 Ur Specific [place] 1.011 Urine Protein Negative Urine Glucose (UA) Negative Urine Ketones Negative Urine Blood Negative Urine Nitrite Negative Urine Bilirubin Negative Urine Urobilinogen Negative Ur Leukocyte Esterase Negative - Treatment Hospital Course: Discharged Condition Good Patient has Accepted a Rehab Referral to: REFUSED - Medication Discharge Medications: Ambulatory Orders Aspirin [ASA -] 325 mg PO DAILY 09/19/18 Insulin Lispro [Humalog] 0 unit SQ BID 11/13/18 - Diagnosis (1) Cocaine abuse, uncomplicated Status: Acute (2) Cannabis abuse, uncomplicated Status: Acute (3) At risk for dehydration due to poor fluid intake Status: Acute (4) Substance induced mood disorder Status: Acute (5) Alcohol dependence with uncomplicated withdrawal Status: Acute (6) History of Runqt-Ekxdsznvk-Fysxf (WPW) syndrome Status: Chronic (7) Nicotine dependence Status: Chronic Qualifiers: Nicotine product type: cigarettes Substance use status: uncomplicated Qualified Code(s): F17.210 - Nicotine dependence, cigarettes, uncomplicated - AMA Did Patient Leave Against Medical Advice: Yes
[2018-12-01] MEDS ORDERED: chlordiazePOXIDE HCL 10 MG CAPSULE PO SCH (23:00)
[2018-12-01] MEDS ORDERED: chlordiazePOXIDE HCL 10 MG CAPSULE PO PRN (23:00)
[2018-12-02] MEDS ORDERED: chlordiazePOXIDE HCL 10 MG CAPSULE PO SCH (23:00)
== END 2018-12-01 06:58 | disposition home or self-care (01) | DRG 774 ==
LOC: YASAS 18:34 → Y3N 11-30 00:14
PROVIDERS: ADMIT Surgery; ATTEND Surgery
PROC: HZ2ZZZZ Detoxification Services for Substance Abuse Treatment (ICD-10-PCS; principal; 2018-11-30)
DX: F10.230 Alcohol dependence with withdrawal, uncomplicated (principal); F14.20 Cocaine dependence, uncomplicated; F12.20 Cannabis dependence, uncomplicated; F17.213 Nicotine dependence, cigarettes, with withdrawal; F19.24 Other psychoactive substance dependence with psychoactive substance-induced mood disorder; I10 Essential (primary) hypertension; I45.6 Pre-excitation syndrome; Z91.89 Other specified personal risk factors, not elsewhere classified
CPT/HCPCS: 81003; 82962

== ENCOUNTER 2018-12-18 19:03 | Inpatient (IN) | payer OTHER ==
--- NOTE | 2018-12-18 21:24 | HP ---
CIWA Score Nausea/Vomitin-No Nausea/No Vomiting Muscle Tremors: None Anxiety: 1-Mildly Anxious Agitation: 5 Paroxysmal Sweats: 4-Forehead w/Sweat Beads Orientation: 2-Disoriented Date<2 days Tacttile Disturbances: 0-None Auditory Disturbances: 0-None Visual Disturbances: 0-None Headache: 5-Severe CIWA-Ar Total Score: 17 - Admission Criteria OAS Guidelines: Admission for Medically Managed Detox: Requires at least one of the followin. CIWA greater than 12 2. Seizures within the past 24 hours 3. Delirium tremens within the past 24 hours 4. Hallucinations within the past 24 hours 5. Acute intervention needed for co occurring medical disorder 6. Acute intervention needed for co occurring psychiatric disorder 7. Severe withdrawal that cannot be handled at a lower level of care (continued vomiting, continued diarrhea, abnormal vital signs) requiring intravenous medication and/or fluids 8. Patient presents the following: CIWA greater than 12 Admission Criteria Met: Admission criteria met Admission ROS [facility] Chief Complaint: c/o worsening withdrawal sx's . seeking detox Allergies/Adverse Reactions: Allergies Allergy/AdvReac Type Severity Reaction Status Date / Time No Known Allergies Allergy Verified 12/18/18 19:52 History of Present Illness: 38 y.o. male with hx/o alcoholism here for detox. client is known to this program. self referred. he has signed out ama 3x in the past 90 days. This is client 3 admission in the past 30 days. present intoxicated sofi 0.290 with ciwa of 17. Denies any clean time. Presently irritable and non complaint with interview. Exam Limitations: No Limitations - Ebola screening Have you traveled outside of the country in the last 21 days: No (N) Have you had contact with anyone from an Ebola affected area: No Do you have a fever: No - Review of Systems Constitutional: Chills, Loss of Appetite, Malaise, Night Sweats, Changes in sleep, Unexplained wgt Loss EENT: reports: No Symptoms Reported Respiratory: reports: Shortness of Breath Cardiac: reports: No Symptoms Reported GI: reports: Nausea, Poor Appetite, Poor Fluid Intake, Vomiting : reports: No Symptoms Reported Musculoskeletal: reports: No Symptoms Reported Integumentary: reports: Sweating Neuro: reports: No Symptoms reported Endocrine: reports: No Symptoms Reported Hematology: reports: No Symptoms Reported Psychiatric: reports: Agitated (irritable), Depressed Other Systems: Reviewed and Negative Patient History - Patient Medical History Hx Anemia: No Hx Asthma: No Hx Chronic Obstructive Pulmonary Disease (COPD): No Hx Cancer: No Hx Cardiac Disorders: Yes (Bronson parkinson Syndrome) Hx Congestive Heart Failure: No Hx Hypertension: No Hx Hypercholesterolemia: No Hx Pacemaker: No HX Cerebrovascular Accident: No Hx Seizures: No Hx Dementia: No Hx Diabetes: No Hx Gastrointestinal Disorders: No Hx Genitourinary Disorders: No Hx Sexually Transmitted Disorders: No Hx Renal Disease (ESRD): No Hx Thyroid Disease: No Hx Human Immunodeficiency Virus (HIV): No Hx Hepatitis C: No Hx Depression: No Hx Suicide Attempt: No Hx Bipolar Disorder: No Hx Schizophrenia: No - Patient Surgical History Past Surgical History: No Hx Neurologic Surgery: No Hx Cataract Extraction: No Hx Cardiac Surgery: No Hx Lung Surgery: No Hx Breast Surgery: No Hx Breast Biopsy: No Hx Abdominal Surgery: No Hx Appendectomy: No Hx Cholecystectomy: No Hx Genitourinary Surgery: No Hx Section: No Hx Orthopedic Surgery: No Anesthesia Reaction: No - PPD History Previous Implant?: Yes Documented Results: Negative w/o proof Implanted On Prior R Admission?: Yes Date: 12/02/18 Results: AMA PPD to be Administered?: Yes - Smoking Cessation Smoking history: Current every day smoker Have you smoked in the past 12 months: Yes Aproximately how many cigarettes per day: 20 Cigars Per Day: 0 Hx Chewing Tobacco Use: No Initiated information on smoking cessation: Yes 'Breaking Loose' booklet given: 12/18/18 - Substance & Tx. History Hx Alcohol Use: Yes Hx Substance Use: Yes Substance Use Type: Alcohol, Marijuana Hx Substance Use Treatment: Yes ([facility]) - Substances abused Alcohol Other (specify): VODKA Substance route: Oral Frequency: Daily Amount used: 4 PINTS VODKA Age of first use: 17 Date of last use: 12/18/18 Marijuana/Hashish Substance route: Smoking Frequency: Daily Amount used: 2 BAgs Age of first use: 17 Date of last use: 12/18/18 Family Disease History - Family Disease History Family History: Denies Admission Physical Exam [facility] - Physical General Appearance: Yes: Alcohol on Breath, Irritable (EXTREMELY), Sweating HEENTM: Yes: EOMI, Normocephalic, Normal Voice, MIGUEL A, Pharynx Normal, Other ( POOR DENTITION) Respiratory: Yes: Chest Non-Tender, Lungs Clear, Normal Breath Sounds, No Respiratory Distress, No Accessory Muscle Use Neck: Yes: No masses,lesions,Nodules, Supple, Trachea in good position Breast: Yes: Breast Exam Deferred Cardiology: Yes: Regular Rhythm, Regular Rate, S1, S2 Abdominal: Yes: Normal Bowel Sounds, Non Tender, Soft Genitourinary: Yes: Within Normal Limits (NO C/O) Back: Yes: Normal Inspection Musculoskeletal: Yes: full range of Motion, Gait Steady Extremities: Yes: Normal Capillary Refill, Non-Tender, Other (LEFT SIDED WEAKNESS) Neurological: Yes: Alert, Depressed Affect Integumentary: Yes: Warm, Diaphoresis Lymphatic: Yes: Within Normal Limits - Diagnostic (1) Acute alcohol intoxication Current Visit: Yes Status: Acute Qualifiers: Complication of substance-induced condition: uncomplicated Qualified Code(s ): F10.920 - Alcohol use, unspecified with intoxication, uncomplicated (2) Alcohol dependence with uncomplicated withdrawal Current Visit: Yes Status: Acute (3) At risk for dehydration due to poor fluid intake Current Visit: Yes Status: Acute (4) Cannabis abuse, uncomplicated Current Visit: Yes Status: Acute (5) Substance induced mood disorder Current Visit: Yes Status: Acute (6) History of Tdcsp-Hgjcuefkt-Lexkg (WPW) syndrome Current Visit: Yes Status: Chronic (7) Nicotine dependence Current Visit: Yes Status: Chronic Qualifiers: Nicotine product type: cigarettes Substance use status: uncomplicated Qualified Code(s): F17.210 - Nicotine dependence, cigarettes, uncomplicated Cleared for Admission [facility] - Detox or Rehab [facility] Level of Care: Medically Managed Detox Regimen/Protocol: Librium Claeared for Rehab Admission: No Inpatient Rehab Admission - Rehab Decision to Admit Inpatient rehab admission?: No
[2018-12-18] MEDS ORDERED: ACETAMINOPHEN 325 MG TABLET (FP) PO PRN ×2 (21:35)
[2018-12-18] MEDS ORDERED: MAG HYDROX/AL HYDROX/SIMETH 30 ML UNIT-DOSE CUP PO PRN (21:35)
[2018-12-18] MEDS ORDERED: MAGNESIUM CITRATE 300 ML BOTTLE PO PRN (21:35)
[2018-12-18] MEDS ORDERED: MELATONIN 5 MG TABLETS PO PRN (21:35)
[2018-12-18] MEDS ORDERED: P-EPHED 60MG/TRIPROLIDI 2.5MG TABLET PO PRN (21:35)
[2018-12-18] MEDS ORDERED: chlordiazePOXIDE HCL 25 MG CAPSULE PO PRN (21:35)
[2018-12-18] MEDS ORDERED: DICYCLOMINE HCL 10 MG CAPSULE PO PRN (21:35)
[2018-12-18] MEDS ORDERED: IBUPROFEN 400 MG TABLET (FP) PO PRN (21:35)
[2018-12-18] MEDS ORDERED: MAGNESIUM HYDROX 2400MG/30ML ORAL SUSPENSION 30 ML CUP PO PRN (21:35)
[2018-12-18] MEDS ORDERED: guaiFENesin 200 MG/10 ML 10 ML UNIT-DOSE CUPS PO PRN (21:35)
[2018-12-18] MEDS ORDERED: NICOTINE POLACRILEX 2 MG GUM BUC PRN (21:35)
[2018-12-18] MEDS ORDERED: METHOCARBAMOL 500 MG TABLET PO PRN (21:35)
[2018-12-18] MEDS ORDERED: BISMUTH SUBSALICYLATE 524 MG/30 ML UD PO PRN (21:35)
[2018-12-18] MEDS ORDERED: MENTHOL/PHENOL 1 EACH UD MM PRN (21:35)
[2018-12-18] MEDS ORDERED: hydrOXYzine PAMOATE 25 MG CAPSULE (FP) PO PRN (21:35)
[2018-12-18] MEDS ORDERED: ONDANSETRON *ODT* 4 MG TABLET SL PRN (21:35)
[2018-12-18] MEDS ORDERED: THIAMINE HCL 100 MG TABLET (FP) PO SCH (22:00)
[2018-12-18 22:04] VITALS: BMI 22.1
[2018-12-18] MEDS: chlordiazePOXIDE HCL 25 MG CAPSULE PO SCH (23:08)
[2018-12-19] MEDS: chlordiazePOXIDE HCL 25 MG CAPSULE PO SCH ×2 (05:28→10:01)
[2018-12-19 09:52] VITALS: BP 128/73; TEMP 98
[2018-12-19] MEDS ORDERED: PRENATAL VITAMINS W/ FOLIC ACID TABLET (FP) PO SCH (10:00)
[2018-12-19] MEDS ORDERED: NICOTINE 21 MG/24 HOURS TOPICAL PATCH TD SCH (10:00)
--- NOTE | 2018-12-19 13:09 | DS ---
[facility] Detox Discharge Summary Admission Date: 12/18/18 Discharge Date: 12/19/18 - History Present History: Alcohol Dependence Additional Comments: 38 years old male admitted on 12/18/18 for alcohol withdrawal stabilization feeling better insists to leave with 360B and 367B patient is alert no acute distress denies suicidal ideation Pertinent Past History: encourage to attend community self help group - Physical Exam Results Vital Signs: Vital Signs Temperature 98 F 12/19/18 09:52 Pulse Rate 88 12/19/18 11:30 Respiratory Rate 20 12/19/18 09:52 Blood Pressure 128/73 12/19/18 09:52 O2 Sat by Pulse Oximetry (%) Pertinent Admission Physical Exam Findings: alcohol withdrawal sx - Treatment Hospital Course: Detox Protocol Followed, Responded well Patient has Accepted a Rehab Referral to: community self help group - Medication Discharge Medications: Ambulatory Orders Aspirin [ASA -] 325 mg PO DAILY 09/19/18 - Diagnosis (1) Alcohol dependence with uncomplicated withdrawal Current Visit: Yes Status: Acute (2) Nicotine dependence Current Visit: Yes Status: Acute Qualifiers: Nicotine product type: cigarettes Substance use status: in withdrawal Qualified Code(s): F17.213 - Nicotine dependence, cigarettes, with withdrawal (3) Diabetes mellitus Current Visit: Yes Status: Chronic Qualifiers: Diabetes mellitus type: type 2 Diabetes mellitus complication status: without complication - AMA Did Patient Leave Against Medical Advice: Yes
[2018-12-19 13:56] VITALS: PULSE 68
[2018-12-19] MEDS ORDERED: chlordiazePOXIDE HCL 25 MG CAPSULE PO SCH (23:00)
[2018-12-20] MEDS ORDERED: chlordiazePOXIDE HCL 10 MG CAPSULE PO PRN (23:00)
[2018-12-20] MEDS ORDERED: chlordiazePOXIDE HCL 10 MG CAPSULE PO SCH (23:00)
[2018-12-21] MEDS ORDERED: chlordiazePOXIDE HCL 10 MG CAPSULE PO SCH (23:00)
== END 2018-12-19 13:15 | disposition left against medical advice (07) | DRG 770 ==
LOC: YASAS 19:03 → Y3N 22:01
PROVIDERS: ADMIT Surgery; ATTEND Surgery
PROC: HZ2ZZZZ Detoxification Services for Substance Abuse Treatment (ICD-10-PCS; principal; 2018-12-18)
DX: F10.230 Alcohol dependence with withdrawal, uncomplicated (principal); F12.10 Cannabis abuse, uncomplicated; F17.213 Nicotine dependence, cigarettes, with withdrawal; E11.9 Type 2 diabetes mellitus without complications; I45.6 Pre-excitation syndrome; Z91.89 Other specified personal risk factors, not elsewhere classified

== ENCOUNTER 2019-02-18 13:50 | Inpatient (IN) | payer OTHER ==
[2019-02-18 18:18] VITALS: BMI 22.1
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
[2019-02-18] MEDS ORDERED: ACETAMINOPHEN 325 MG TABLET (FP) PO PRN ×2 (19:24)
[2019-02-18] MEDS ORDERED: MAG HYDROX/AL HYDROX/SIMETH 30 ML UNIT-DOSE CUP PO PRN (19:24)
[2019-02-18] MEDS ORDERED: BISMUTH SUBSALICYLATE 524 MG/30 ML UD PO PRN (19:24)
[2019-02-18] MEDS ORDERED: MENTHOL/PHENOL 1 EACH UD MM PRN (19:24)
[2019-02-18] MEDS ORDERED: MAGNESIUM HYDROX 2400MG/30ML ORAL SUSPENSION 30 ML CUP PO PRN (19:24)
[2019-02-18] MEDS ORDERED: IBUPROFEN 400 MG TABLET (FP) PO PRN (19:24)
[2019-02-18] MEDS ORDERED: hydrOXYzine PAMOATE 25 MG CAPSULE (FP) PO PRN (19:24)
[2019-02-18] MEDS ORDERED: MELATONIN 5 MG TABLETS PO PRN (19:24)
[2019-02-18] MEDS ORDERED: METHOCARBAMOL 500 MG TABLET PO PRN (19:24)
[2019-02-18] MEDS ORDERED: MAGNESIUM CITRATE 300 ML BOTTLE PO PRN (19:24)
[2019-02-18] MEDS ORDERED: diazePAM 5 MG TABLET PO PRN (19:32)
[2019-02-18] MEDS ORDERED: THIAMINE HCL 100 MG TABLET (FP) PO SCH (22:00)
[2019-02-18] MEDS: diazePAM 5 MG TABLET PO SCH (22:02)
[2019-02-19] MEDS: diazePAM 5 MG TABLET PO SCH (05:27)
[2019-02-19 09:35] VITALS: BP 129/78; PULSE 64; TEMP 98.3
[2019-02-19] MEDS ORDERED: PRENATAL VITAMINS W/ FOLIC ACID TABLET (FP) PO SCH (10:00)
[2019-02-19] MEDS ORDERED: ASPIRIN 325 MG TABLET PO SCH (10:00)
[2019-02-19 11:05] LABS: ALBUMIN 3.6 g/dl (3.4-5.0); BILIRUBIN,TOTAL 0.3 mg/dL (0.2-1); CALCIUM 8.5 mg/dL (8.5-10.1); CREATININE 0.9 mg/dL (0.55-1.3)
[2019-02-19 11:55] LABS: HEMATOCRIT 39.6 % (35.4-49); HEMOGLOBIN 13.2 GM/dL (11.7-16.9); MCH 35.7 pg (25.7-33.7); MCHC 33.5 g/dl (32.0-35.9); MEAN CELL VOLUME 106.7 fl (80-96); MEAN PLT VOLUME 8.2 fl (7.5-11.1); RBC 3.71 M/mm3 (4.00-5.60); RDW 13.8 % (11.9-15.9); WHITE BLOOD COUNT 2.9 K/mm3 (4.0-10.0)
--- NOTE | 2019-02-19 13:16 | DS ---
[facility] Detox Discharge Summary Admission Date: 02/18/19 Discharge Date: 02/19/19 (Pt left AMA) - History Present History: Alcohol Dependence Additional Comments: Pt left AMA. Pt did not complete his detox protocol. Pt stated he has to leave because he has to take care of something. Attempt to let pt stay and complete his detox protocol failed. Pt is encouraged to follow-up with his PMD and also follow-up with [facility] outpatient program. Pt is AOx3, in no respiratory distress. Pertinent Past History: H/O cocaine, cannabis, and alcohol use disorder. - Physical Exam Results Vital Signs: Vital Signs Temperature 98.3 F 02/19/19 09:34 Pulse Rate 64 02/19/19 09:34 Respiratory Rate 20 02/19/19 09:34 Blood Pressure 129/78 02/19/19 09:34 O2 Sat by Pulse Oximetry (%) Laboratory Last Values WBC 2.9 K/mm3 (4.0-10.0) L 02/19/19 08:00 RBC 3.71 M/mm3 (4.00-5.60) L 02/19/19 08:00 Hgb 13.2 GM/dL (11.7-16.9) 02/19/19 08:00 Hct 39.6 % (35.4-49) 02/19/19 08:00 MCV 106.7 fl (80-96) H 02/19/19 08:00 MCH 35.7 pg (25.7-33.7) H 02/19/19 08:00 MCHC 33.5 g/dl (32.0-35.9) 02/19/19 08:00 RDW 13.8 % (11.9-15.9) 02/19/19 08:00 MPV 8.2 fl (7.5-11.1) 02/19/19 08:00 Sodium 141 mmol/L (136-145) 02/19/19 08:00 Potassium 4.0 mmol/L (3.5-5.1) 02/19/19 08:00 Chloride 107 mmol/L (98-107) 02/19/19 08:00 Carbon Dioxide 28 mmol/L (21-32) 02/19/19 08:00 Anion Gap 6 MMOL/L (8-16) L 02/19/19 08:00 BUN 13.0 mg/dL (7-18) 02/19/19 08:00 Creatinine 0.9 mg/dL (0.55-1.3) 02/19/19 08:00 Est GFR (CKD-EPI)AfAm 126.02 02/19/19 08:00 Est GFR (CKD-EPI)NonAf 108.73 02/19/19 08:00 Random Glucose 67 mg/dL (74-106) L 02/19/19 08:00 Calcium 8.5 mg/dL (8.5-10.1) 02/19/19 08:00 Total Bilirubin 0.3 mg/dL (0.2-1) 02/19/19 08:00 AST 34 U/L (15-37) 02/19/19 08:00 ALT 28 U/L (13-61) 02/19/19 08:00 Alkaline Phosphatase 89 U/L (45-117) 02/19/19 08:00 Total Protein 7.0 g/dl (6.4-8.2) 02/19/19 08:00 Albumin 3.6 g/dl (3.4-5.0) 02/19/19 08:00 RPR Titer Nonreactive (NONREACTIVE) 02/19/19 08:00 Labs noted. Pertinent Admission Physical Exam Findings: Withdrawal symptoms. - Treatment Hospital Course: Detox Protocol Followed - Medication Discharge Medications: Ambulatory Orders Aspirin [ASA -] 325 mg PO DAILY 09/19/18 - Diagnosis (1) Alcohol dependence with uncomplicated withdrawal Status: Acute (2) Cannabis abuse, uncomplicated Status: Acute (3) Cocaine abuse, uncomplicated Status: Acute (4) Diabetes mellitus Status: Chronic Qualifiers: Diabetes mellitus type: type 2 Diabetes mellitus complication status: without complication (5) History of Edkog-Koshtrewr-Yzamm (WPW) syndrome Status: Chronic (6) Nicotine dependence Status: Chronic Qualifiers: Nicotine product type: cigarettes Substance use status: in withdrawal Qualified Code(s): F17.213 - Nicotine dependence, cigarettes, with withdrawal - AMA Did Patient Leave Against Medical Advice: Yes
[2019-02-19 16:50] LABS: PLATELET COUNT 154 K/MM3 (134-434)
[2019-02-20] MEDS ORDERED: diazePAM 5 MG TABLET PO SCH (10:00)
[2019-02-21] MEDS ORDERED: diazePAM 5 MG TABLET PO SCH (06:00)
== END 2019-02-19 09:00 | disposition left against medical advice (07) | DRG 770 ==
LOC: YASAS 13:50 → Y3N 19:51
PROVIDERS: ADMIT Surgery; ATTEND Surgery
PROC: HZ2ZZZZ Detoxification Services for Substance Abuse Treatment (ICD-10-PCS; principal; 2019-02-18)
DX: F10.230 Alcohol dependence with withdrawal, uncomplicated (principal); F14.10 Cocaine abuse, uncomplicated; F12.20 Cannabis dependence, uncomplicated; F17.210 Nicotine dependence, cigarettes, uncomplicated; I45.6 Pre-excitation syndrome; E11.9 Type 2 diabetes mellitus without complications; Z91.5 Personal history of self-harm; Z86.79 Personal history of other diseases of the circulatory system
CPT/HCPCS: 36415; 80053; 85027; 86593

== ENCOUNTER 2019-03-18 15:37 | Inpatient (IN) | payer OTHER ==
[2019-03-18 15:51] VITALS: BMI 23.0
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
[2019-03-18] MEDS ORDERED: chlordiazePOXIDE HCL 25 MG CAPSULE PO PRN (17:48)
[2019-03-18] MEDS ORDERED: METHADONE HCL 10 MG TABLET (FOR DETOX USE ONLY) PO ONE (17:48)
[2019-03-18] MEDS ORDERED: METHOCARBAMOL 500 MG TABLET PO PRN (17:48)
[2019-03-18] MEDS ORDERED: cloNIDine HCL 0.1 MG TABLET PO PRN (17:48)
[2019-03-18] MEDS ORDERED: BISMUTH SUBSALICYLATE 524 MG/30 ML UD PO PRN (17:48)
[2019-03-18] MEDS ORDERED: ACETAMINOPHEN 325 MG TABLET (FP) PO PRN ×2 (17:48)
[2019-03-18] MEDS ORDERED: MENTHOL/PHENOL 1 EACH UD MM PRN (17:48)
[2019-03-18] MEDS ORDERED: MAGNESIUM HYDROX 2400MG/30ML ORAL SUSPENSION 30 ML CUP PO PRN (17:48)
[2019-03-18] MEDS ORDERED: MELATONIN 5 MG TABLETS PO PRN (17:48)
[2019-03-18] MEDS ORDERED: IBUPROFEN 400 MG TABLET (FP) PO PRN (17:48)
[2019-03-18] MEDS ORDERED: MAG HYDROX/AL HYDROX/SIMETH 30 ML UNIT-DOSE CUP PO PRN (17:48)
[2019-03-18] MEDS ORDERED: hydrOXYzine PAMOATE 25 MG CAPSULE (FP) PO PRN (17:48)
[2019-03-18] MEDS ORDERED: MAGNESIUM CITRATE 300 ML BOTTLE PO PRN (17:48)
[2019-03-18] MEDS ORDERED: THIAMINE HCL 100 MG TABLET (FP) PO SCH (22:00)
[2019-03-18] MEDS: chlordiazePOXIDE HCL 25 MG CAPSULE PO SCH (22:14)
[2019-03-19] MEDS: chlordiazePOXIDE HCL 25 MG CAPSULE PO SCH (06:32)
[2019-03-19 09:28] VITALS: BP 132/85; PULSE 60; TEMP 97.7
[2019-03-19] MEDS ORDERED: METHADONE HCL 5 MG TABLET (FOR DETOX USE ONLY) PO ONE (10:00)
[2019-03-19] MEDS ORDERED: PRENATAL VITAMINS W/ FOLIC ACID TABLET (FP) PO SCH (10:00)
[2019-03-19 11:07] LABS: ALBUMIN 3.2 g/dl (3.4-5.0); BILIRUBIN,TOTAL 0.4 mg/dL (0.2-1); BLOOD UREA NITROGEN 11.3 mg/dL (7-18); CALCIUM 8.3 mg/dL (8.5-10.1); CREATININE 0.9 mg/dL (0.55-1.3); POTASSIUM 3.9 mmol/L (3.5-5.1); TOT PROT 6.3 g/dl (6.4-8.2)
[2019-03-19 11:10] LABS: HEMOGLOBIN 12.8 GM/dL (11.7-16.9); MCHC 32.9 g/dl (32.0-35.9); MEAN CELL VOLUME 106.4 fl (80-96); MEAN PLT VOLUME 8.3 fl (7.5-11.1); RBC 3.67 M/mm3 (4.00-5.60); RDW 13.7 % (11.9-15.9); WHITE BLOOD COUNT 5.1 K/mm3 (4.0-10.0)
[2019-03-19 12:16] LABS: PLATELET COUNT 192 K/MM3 (134-434)
--- NOTE | 2019-03-19 13:53 | DS ---
[facility] Detox Discharge Summary Admission Date: 03/18/19 Discharge Date: 03/19/19 (Left AMA) - History Present History: Alcohol Dependence, Cannabis Dependence, Opioid Dependence Additional Comments: Pt left AMA. Did not complete his detox protocol. As per RN pt stated he wants to leave and does not want to follow-up with his detox protocol and an attempt to let him stay and complete his detox protocol failed. Pt did not wait to talk to the provider. When provide met him this morning pt c/o nausea, interrupted sleep, anxiety, and mild headache. Pt is alert and oriented x3 and in no respiratory distress when he was seen during morning rounds. Pertinent Past History: h/o alcohol, cannabis, and heroine use disorder. - Physical Exam Results Vital Signs: Vital Signs Temperature 97.7 F 03/19/19 09:27 Pulse Rate 60 03/19/19 09:27 Respiratory Rate 16 03/19/19 09:27 Blood Pressure 132/85 03/19/19 09:27 O2 Sat by Pulse Oximetry (%) Vital Signs 03/19/19 03/19/19 07:48 09:27 Temperature 97 F L 97.7 F Pulse Rate 54 L 60 Respiratory 18 16 Rate Blood Pressure 115/74 132/85 Lab Results WBC 5.1 K/mm3 (4.0-10.0) 03/19/19 08:00 RBC 3.67 M/mm3 (4.00-5.60) L 03/19/19 08:00 Hgb 12.8 GM/dL (11.7-16.9) 03/19/19 08:00 Hct 39.0 % (35.4-49) 03/19/19 08:00 MCV 106.4 fl (80-96) H 03/19/19 08:00 MCHC 32.9 g/dl (32.0-35.9) 03/19/19 08:00 RDW 13.7 % (11.9-15.9) 03/19/19 08:00 Plt Count 192 K/MM3 (134-434) D 03/19/19 08:00 Sodium 140 mmol/L (136-145) 03/19/19 08:00 Potassium 3.9 mmol/L (3.5-5.1) 03/19/19 08:00 Chloride 107 mmol/L (98-107) 03/19/19 08:00 Carbon Dioxide 28 mmol/L (21-32) 03/19/19 08:00 Anion Gap 5 MMOL/L (8-16) L 03/19/19 08:00 BUN 11.3 mg/dL (7-18) 03/19/19 08:00 Creatinine 0.9 mg/dL (0.55-1.3) 03/19/19 08:00 Random Glucose 84 mg/dL (74-106) 03/19/19 08:00 Calcium 8.3 mg/dL (8.5-10.1) L 03/19/19 08:00 Labs reviewed. Pertinent Admission Physical Exam Findings: withdrawal symptoms. - Treatment Hospital Course: Detox Protocol Followed - Medication Discharge Medications: Ambulatory Orders NK [No Known Home Medication] 03/18/19 - Diagnosis (1) Acute alcohol intoxication Status: Acute Qualifiers: Complication of substance-induced condition: uncomplicated Qualified Code(s ): F10.920 - Alcohol use, unspecified with intoxication, uncomplicated (2) Alcohol dependence with uncomplicated withdrawal Status: Acute (3) Cannabis abuse, uncomplicated Status: Acute (4) Cocaine abuse, uncomplicated Status: Acute (5) Opiate dependence Status: Acute (6) Cannabis dependence Status: Chronic (7) Diabetes mellitus Status: Chronic Qualifiers: Diabetes mellitus type: type 2 Diabetes mellitus complication status: without complication (8) History of Bqavp-Lvxgsqbox-Myjbp (WPW) syndrome Status: Chronic (9) Nicotine dependence Status: Chronic Qualifiers: Nicotine product type: cigarettes Substance use status: in withdrawal Qualified Code(s): F17.213 - Nicotine dependence, cigarettes, with withdrawal - AMA Did Patient Leave Against Medical Advice: Yes
[2019-03-20] MEDS ORDERED: chlordiazePOXIDE HCL 25 MG CAPSULE PO SCH (05:00)
[2019-03-20] MEDS ORDERED: METHADONE HCL 10 MG TABLET (FOR DETOX USE ONLY) PO ONE (10:00)
--- NOTE | 2019-03-20 14:00 | EKG ---
Test Reason : Blood Pressure : / mmHG Vent. Rate : 070 BPM Atrial Rate : 070 BPM P-R Int : 124 ms QRS Dur : 088 ms QT Int : 394 ms P-R-T Axes : 058 063 055 degrees QTc Int : 425 ms NORMAL SINUS RHYTHM NORMAL ECG WHEN COMPARED WITH ECG OF 13-NOV-2018 21:37, VENT. RATE HAS DECREASED BY 45 BPM T WAVE AMPLITUDE HAS INCREASED IN ANTEROLATERAL LEADS Confirmed by MD RICHMOND, ROBERTO ([id number]) on 03/20/2019 2:00:03 PM Referred By: Confirmed By:ROBERTO FRAGOSO MD
[2019-03-21] MEDS ORDERED: chlordiazePOXIDE HCL 10 MG CAPSULE PO PRN
[2019-03-21] MEDS ORDERED: chlordiazePOXIDE HCL 10 MG CAPSULE PO SCH (05:00)
[2019-03-21] MEDS ORDERED: METHADONE HCL 5 MG TABLET (FOR DETOX USE ONLY) PO ONE (06:00)
[2019-03-22] MEDS ORDERED: chlordiazePOXIDE HCL 10 MG CAPSULE PO SCH (05:00)
[2019-03-23] MEDS ORDERED: chlordiazePOXIDE HCL 10 MG CAPSULE PO ONE (05:00)
== END 2019-03-19 11:30 | disposition home or self-care (01) | DRG 773 ==
LOC: YASAS 15:37 → Y6N 18:48
PROVIDERS: ADMIT Surgery; ATTEND Surgery
PROC: HZ2ZZZZ Detoxification Services for Substance Abuse Treatment (ICD-10-PCS; principal; 2019-03-18)
DX: F10.230 Alcohol dependence with withdrawal, uncomplicated (principal); F11.23 Opioid dependence with withdrawal; F14.10 Cocaine abuse, uncomplicated; F12.20 Cannabis dependence, uncomplicated; F17.210 Nicotine dependence, cigarettes, uncomplicated; E11.9 Type 2 diabetes mellitus without complications; Z79.84 Long term (current) use of oral hypoglycemic drugs; Z86.79 Personal history of other diseases of the circulatory system
CPT/HCPCS: 36415; 80053; 85027; 86593; 93005; 93010

== ENCOUNTER 2019-04-23 10:12 | Inpatient (IN) | payer OTHER ==
[2019-04-23 11:16] VITALS: BMI 23.3
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
[2019-04-23] MEDS ORDERED: MAGNESIUM CITRATE 300 ML BOTTLE PO PRN (12:10)
[2019-04-23] MEDS ORDERED: ACETAMINOPHEN 325 MG TABLET (FP) PO PRN ×2 (12:10)
[2019-04-23] MEDS ORDERED: BISMUTH SUBSALICYLATE 524 MG/30 ML UD PO PRN (12:10)
[2019-04-23] MEDS ORDERED: hydrOXYzine PAMOATE 25 MG CAPSULE (FP) PO PRN (12:10)
[2019-04-23] MEDS ORDERED: chlordiazePOXIDE HCL 25 MG CAPSULE PO PRN (12:10)
[2019-04-23] MEDS ORDERED: MAGNESIUM HYDROX 2400MG/30ML ORAL SUSPENSION 30 ML CUP PO PRN (12:10)
[2019-04-23] MEDS ORDERED: IBUPROFEN 400 MG TABLET (FP) PO PRN (12:10)
[2019-04-23] MEDS ORDERED: MAG HYDROX/AL HYDROX/SIMETH 30 ML UNIT-DOSE CUP PO PRN (12:10)
[2019-04-23] MEDS ORDERED: MENTHOL/PHENOL 1 EACH UD MM PRN (12:10)
[2019-04-23] MEDS ORDERED: METHOCARBAMOL 500 MG TABLET PO PRN (12:10)
[2019-04-23] MEDS ORDERED: NICOTINE POLACRILEX 2 MG GUM BUC PRN (12:10)
[2019-04-23] MEDS ORDERED: MELATONIN 5 MG TABLETS PO PRN (12:10)
[2019-04-23] MEDS ORDERED: THIAMINE HCL 100 MG TABLET (FP) PO SCH (22:00)
[2019-04-23] MEDS: chlordiazePOXIDE HCL 25 MG CAPSULE PO SCH (22:25)
[2019-04-24] MEDS: chlordiazePOXIDE HCL 25 MG CAPSULE PO SCH (05:25)
[2019-04-24 06:31] VITALS: BP 111/79; PULSE 72; TEMP 97.4
[2019-04-24 09:58] LABS: HEMATOCRIT 36.3 % (35.4-49); HEMOGLOBIN 12.3 GM/dL (11.7-16.9); MCH 35.3 pg (25.7-33.7); MCHC 33.8 g/dl (32.0-35.9); MEAN CELL VOLUME 104.7 fl (80-96); MEAN PLT VOLUME 8.1 fl (7.5-11.1); PLATELET COUNT 199 K/MM3 (134-434); RBC 3.47 M/mm3 (4.00-5.60); RDW 13.4 % (11.9-15.9); WHITE BLOOD COUNT 5.5 K/mm3 (4.0-10.0)
[2019-04-24] MEDS ORDERED: PRENATAL VITAMINS W/ FOLIC ACID TABLET (FP) PO SCH (10:00)
[2019-04-24 10:02] LABS: ALBUMIN 3.6 g/dl (3.4-5.0); BILIRUBIN,TOTAL 0.5 mg/dL (0.2-1); BLOOD UREA NITROGEN 9.4 mg/dL (7-18); CALCIUM 9.1 mg/dL (8.5-10.1); CREATININE 0.9 mg/dL (0.55-1.3); POTASSIUM 4.1 mmol/L (3.5-5.1); TOT PROT 6.8 g/dl (6.4-8.2)
--- NOTE | 2019-04-24 12:59 | DS ---
[facility] Detox Discharge Summary Admission Date: 04/23/19 Discharge Date: 04/24/19 - History Present History: Alcohol Dependence, Sedative Dependence Additional Comments: 38 years old male admitted on 04/23/19 for acute alcohol and benzo withdrawal sx management insists to leave the detox unit due to "emergency" situation at home patient refuses to elaborate condition regarding emergency patient is alert oriented x 3 speech clearly steady gait patient stands for goal directed action to leave the detox strong recommend the patient seek community support toward sobriety - Physical Exam Results Vital Signs: Vital Signs Temperature 97.4 F L 04/24/19 06:30 Pulse Rate 72 04/24/19 06:30 Respiratory Rate 18 04/24/19 06:30 Blood Pressure 111/79 04/24/19 06:30 O2 Sat by Pulse Oximetry (%) Pertinent Admission Physical Exam Findings: alcohol and benzo withdrawal sx Vital Signs Temperature 97.4 F L 04/24/19 06:30 Pulse Rate 72 04/24/19 06:30 Respiratory Rate 18 04/24/19 06:30 Blood Pressure 111/79 04/24/19 06:30 O2 Sat by Pulse Oximetry (%) Laboratory Last Values WBC 5.5 K/mm3 (4.0-10.0) 04/24/19 08:00 RBC 3.47 M/mm3 (4.00-5.60) L 04/24/19 08:00 Hgb 12.3 GM/dL (11.7-16.9) 04/24/19 08:00 Hct 36.3 % (35.4-49) 04/24/19 08:00 MCV 104.7 fl (80-96) H 04/24/19 08:00 MCH 35.3 pg (25.7-33.7) H 04/24/19 08:00 MCHC 33.8 g/dl (32.0-35.9) 04/24/19 08:00 RDW 13.4 % (11.9-15.9) 04/24/19 08:00 Plt Count 199 K/MM3 (134-434) 04/24/19 08:00 MPV 8.1 fl (7.5-11.1) 04/24/19 08:00 Sodium 142 mmol/L (136-145) 04/24/19 08:00 Potassium 4.1 mmol/L (3.5-5.1) 04/24/19 08:00 Chloride 108 mmol/L (98-107) H 04/24/19 08:00 Carbon Dioxide 29 mmol/L (21-32) 04/24/19 08:00 Anion Gap 6 MMOL/L (8-16) L 04/24/19 08:00 BUN 9.4 mg/dL (7-18) 04/24/19 08:00 Creatinine 0.9 mg/dL (0.55-1.3) 04/24/19 08:00 Est GFR (CKD-EPI)AfAm 126.02 04/24/19 08:00 Est GFR (CKD-EPI)NonAf 108.73 04/24/19 08:00 Random Glucose 81 mg/dL (74-106) 04/24/19 08:00 Calcium 9.1 mg/dL (8.5-10.1) 04/24/19 08:00 Total Bilirubin 0.5 mg/dL (0.2-1) 04/24/19 08:00 AST 45 U/L (15-37) H 04/24/19 08:00 ALT 46 U/L (13-61) 04/24/19 08:00 Alkaline Phosphatase 74 U/L (45-117) 04/24/19 08:00 Total Protein 6.8 g/dl (6.4-8.2) 04/24/19 08:00 Albumin 3.6 g/dl (3.4-5.0) 04/24/19 08:00 lab noted ast elevation most likely alcohol related - Treatment Hospital Course: Detox Protocol Followed, Responded well Patient has Accepted a Rehab Referral to: community support approach - Medication Discharge Medications: Ambulatory Orders NK [No Known Home Medication] 04/23/19 - Diagnosis (1) Alcohol dependence with uncomplicated withdrawal Status: Acute (2) Nicotine dependence Status: Acute Qualifiers: Nicotine product type: cigarettes Substance use status: in withdrawal Qualified Code(s): F17.213 - Nicotine dependence, cigarettes, with withdrawal (3) Diabetes mellitus Status: Chronic Qualifiers: Diabetes mellitus type: type 2 Diabetes mellitus complication status: without complication (4) Substance induced mood disorder Status: Suspected (5) Sedative, hypnotic or anxiolytic dependence with withdrawal, uncomplicated Status: Acute - AMA Did Patient Leave Against Medical Advice: Yes
[2019-04-25] MEDS ORDERED: chlordiazePOXIDE HCL 25 MG CAPSULE PO SCH (05:00)
[2019-04-26] MEDS ORDERED: chlordiazePOXIDE HCL 10 MG CAPSULE PO PRN
[2019-04-26] MEDS ORDERED: chlordiazePOXIDE HCL 10 MG CAPSULE PO SCH (05:00)
[2019-04-27] MEDS ORDERED: chlordiazePOXIDE HCL 10 MG CAPSULE PO SCH (05:00)
[2019-04-28] MEDS ORDERED: chlordiazePOXIDE HCL 10 MG CAPSULE PO ONE (05:00)
== END 2019-04-24 09:18 | disposition left against medical advice (07) | DRG 770 ==
LOC: YASAS 10:12 → Y3N 12:18
PROVIDERS: ADMIT Surgery; ATTEND Surgery
PROC: HZ2ZZZZ Detoxification Services for Substance Abuse Treatment (ICD-10-PCS; principal; 2019-04-23)
DX: F10.230 Alcohol dependence with withdrawal, uncomplicated (principal); F13.230 Sedative, hypnotic or anxiolytic dependence with withdrawal, uncomplicated; F11.10 Opioid abuse, uncomplicated; F12.10 Cannabis abuse, uncomplicated; F17.213 Nicotine dependence, cigarettes, with withdrawal; E11.9 Type 2 diabetes mellitus without complications; R00.0 Tachycardia, unspecified
CPT/HCPCS: 36415; 80053; 85027; 86593

== ENCOUNTER 2019-06-17 15:03 | Inpatient (IN) | payer OTHER ==
[2019-06-17 20:01] VITALS: BMI 23.1
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
[2019-06-17] MEDS ORDERED: MAG HYDROX/AL HYDROX/SIMETH 30 ML UNIT-DOSE CUP PO PRN (21:39)
[2019-06-17] MEDS ORDERED: MENTHOL/PHENOL 1 EACH UD MM PRN (21:39)
[2019-06-17] MEDS ORDERED: MAGNESIUM CITRATE 300 ML BOTTLE PO PRN (21:39)
[2019-06-17] MEDS ORDERED: MAGNESIUM HYDROX 2400MG/30ML ORAL SUSPENSION 30 ML CUP PO PRN (21:39)
[2019-06-17] MEDS ORDERED: chlordiazePOXIDE HCL 25 MG CAPSULE PO PRN (21:39)
[2019-06-17] MEDS ORDERED: IBUPROFEN 400 MG TABLET (FP) PO PRN (21:39)
[2019-06-17] MEDS ORDERED: BISMUTH SUBSALICYLATE 524 MG/30 ML UD PO PRN (21:39)
[2019-06-17] MEDS ORDERED: MELATONIN 5 MG TABLETS PO PRN (21:39)
[2019-06-17] MEDS ORDERED: METHOCARBAMOL 500 MG TABLET PO PRN (21:39)
[2019-06-17] MEDS ORDERED: NICOTINE POLACRILEX 2 MG GUM BUC PRN (21:39)
[2019-06-17] MEDS ORDERED: ACETAMINOPHEN 325 MG TABLET (FP) PO PRN ×2 (21:39)
[2019-06-17] MEDS ORDERED: PROCHLORPERAZINE MALEATE 5 MG TABLET PO PRN (21:39)
[2019-06-17] MEDS ORDERED: THIAMINE HCL 100 MG TABLET (FP) PO SCH (22:00)
[2019-06-17] MEDS: DOCUSATE SODIUM 100 MG CAPSULE (FP) PO SCH (22:38)
[2019-06-17] MEDS: chlordiazePOXIDE HCL 25 MG CAPSULE PO SCH (22:38)
[2019-06-18] MEDS: DOCUSATE SODIUM 100 MG CAPSULE (FP) PO SCH (05:25)
[2019-06-18] MEDS: chlordiazePOXIDE HCL 25 MG CAPSULE PO SCH ×2 (05:25→10:40)
[2019-06-18 09:17] VITALS: BP 119/77; PULSE 80; TEMP 97.1
[2019-06-18] MEDS ORDERED: PRENATAL VITAMINS W/ FOLIC ACID TABLET (FP) PO SCH (10:00)
[2019-06-18] MEDS ORDERED: NICOTINE 7 MG/24 HOURS TOPICAL PATCH TD SCH (10:00)
[2019-06-18 11:13] LABS: HEMATOCRIT 35.5 % (35.4-49); HEMOGLOBIN 11.8 GM/dL (11.7-16.9); MCH 34.1 pg (25.7-33.7); MCHC 33.1 g/dl (32.0-35.9); MEAN CELL VOLUME 103.1 fl (80-96); MEAN PLT VOLUME 8.3 fl (7.5-11.1); PLATELET COUNT 152 K/MM3 (134-434); RBC 3.45 M/mm3 (4.00-5.60); RDW 13.1 % (11.9-15.9); WHITE BLOOD COUNT 4.1 K/mm3 (4.0-10.0)
[2019-06-18 11:28] LABS: ALBUMIN 3.2 g/dl (3.4-5.0); BILIRUBIN,TOTAL 0.2 mg/dL (0.2-1); BLOOD UREA NITROGEN 15.4 mg/dL (7-18); CALCIUM 8.4 mg/dL (8.5-10.1); CREATININE 0.9 mg/dL (0.55-1.3); POTASSIUM 3.4 mmol/L (3.5-5.1); TOT PROT 6.2 g/dl (6.4-8.2)
--- NOTE | 2019-06-18 18:04 | DS ---
[facility] Detox Discharge Summary Admission Date: 06/17/19 Discharge Date: 06/18/19 - History Present History: Alcohol Dependence, Cannabis Dependence, Opioid Dependence Additional Comments: DESPITE EFFORTS BY AUCTION CLERK AND BY NURSING STAFF TO ADDRESS PATIENT'S MEDICAL NEEDS / CONCERNS, PATIENT DOES NOT WISH TO REMAIN TO COMPLETE DETOX REGIMEN. RISKS OF LEAVING DETOX UNIT AGAINST MEDICAL ADVICE AND PRIOR TO COMPLETION OF DETOX REGIMEN EXPLAINED TO PATIENT. PATIENT ADVISED TO GO IMMEDIATELY TO NEAREST ER SHOULD ANY INTOLERABLE WITHDRAWAL / DETOX SYMPTOMS DEVELOP AT ANY TIME. PATIENT VERBALIZED UNDERSTANDING OF ALL INFORMATION / RECOMMENDATIONS PRESENTED TO HIM PRIOR TO DEPARTURE FROM DETOX UNIT. PATIENT LEFT DETOX UNIT IN STABLE MEDICAL CONDITION. Pertinent Past History: Nystagmus, History Of Cardiac Murmur, History Of Umbilical Hernia, Hypokalemia, Elevated AST Level, History Of Xizsh-Dudcnhvzi-Farbh Syndrome (WPS). - Physical Exam Results Vital Signs: Vital Signs Temperature 97.1 F L 06/18/19 09:15 Pulse Rate 80 06/18/19 09:15 Respiratory Rate 18 06/18/19 09:15 Blood Pressure 119/77 06/18/19 09:15 O2 Sat by Pulse Oximetry (%) Pertinent Admission Physical Exam Findings: WITHDRAWAL SYMPTOMS. Laboratory Tests 06/18/19 06/18/19 08:10 08:10 WBC 4.1 RBC 3.45 L Hgb 11.8 Hct 35.5 MCV 103.1 H MCH 34.1 H MCHC 33.1 RDW 13.1 Plt Count 152 D MPV 8.3 Sodium 141 Potassium 3.4 L Chloride 107 Carbon Dioxide 26 Anion Gap 8 BUN 15.4 Creatinine 0.9 Est GFR (CKD-EPI)AfAm 125.13 Est GFR (CKD-EPI)NonAf 107.97 Random Glucose 90 Calcium 8.4 L Total Bilirubin 0.2 AST 48 H ALT 38 Alkaline Phosphatase 89 Total Protein 6.2 L Albumin 3.2 L LABS NOTED. - Medication Discharge Medications: Ambulatory Orders NK [No Known Home Medication] 04/23/19 - Diagnosis (1) Acute alcohol intoxication Status: Acute Qualifiers: Complication of substance-induced condition: uncomplicated Qualified Code(s ): F10.920 - Alcohol use, unspecified with intoxication, uncomplicated (2) Alcohol dependence with uncomplicated withdrawal Status: Acute (3) At risk for dehydration due to poor fluid intake Status: Acute (4) Heroin use disorder, mild, in early remission Status: Acute (5) Unspecified nystagmus Status: Acute (6) Cannabis abuse, uncomplicated Status: Chronic (7) Cardiac murmur Status: Chronic (8) History of umbilical hernia Status: Chronic (9) History of Iedmh-Rhicxkrvt-Oboze (WPW) syndrome Status: Suspected - AMA Did Patient Leave Against Medical Advice: Yes (PATIENT DID NOT WISH TO REMAIN TO COMPLETE DETOX REGIMEN.) [facility] CIWA - CIWA Score Nausea/Vomitin-No Nausea/No Vomiting Muscle Tremors: 3 Anxiety: 4-Mod. Anxious/Guarded Agitation: 3 Paroxysmal Sweats: No Perspiration Orientation: 0-Oriented Tacttile Disturbances: 1-Very Mild Itch/Numbness Auditory Disturbances: 2-Mild Harshness/Frighten Visual Disturbances: 0-None Headache: 0-None Present CIWA-Ar Total Score: 13
[2019-06-19] MEDS ORDERED: chlordiazePOXIDE HCL 25 MG CAPSULE PO SCH (05:00)
[2019-06-20] MEDS ORDERED: chlordiazePOXIDE HCL 10 MG CAPSULE PO PRN
[2019-06-20] MEDS ORDERED: chlordiazePOXIDE HCL 10 MG CAPSULE PO SCH (05:00)
[2019-06-21] MEDS ORDERED: chlordiazePOXIDE HCL 10 MG CAPSULE PO SCH (05:00)
[2019-06-22] MEDS ORDERED: chlordiazePOXIDE HCL 10 MG CAPSULE PO ONE (05:00)
== END 2019-06-18 11:30 | disposition left against medical advice (07) | DRG 770 ==
LOC: YASAS 15:03 → Y3N 22:03
PROVIDERS: ADMIT Allergy & Immunology; ATTEND Allergy & Immunology
PROC: HZ2ZZZZ Detoxification Services for Substance Abuse Treatment (ICD-10-PCS; principal; 2019-06-17)
DX: F10.230 Alcohol dependence with withdrawal, uncomplicated (principal); F10.220 Alcohol dependence with intoxication, uncomplicated; F11.21 Opioid dependence, in remission; F13.20 Sedative, hypnotic or anxiolytic dependence, uncomplicated; F12.20 Cannabis dependence, uncomplicated; F17.210 Nicotine dependence, cigarettes, uncomplicated; H55.00 Unspecified nystagmus; R01.1 Cardiac murmur, unspecified; Z87.19 Personal history of other diseases of the digestive system; Z91.89 Other specified personal risk factors, not elsewhere classified; Z86.79 Personal history of other diseases of the circulatory system
CPT/HCPCS: 36415; 80053; 85027

== ENCOUNTER 2019-07-16 13:06 | Inpatient (IN) | payer OTHER ==
[2019-07-16 17:15] VITALS: BMI 22.6
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
[2019-07-16] MEDS ORDERED: MAGNESIUM HYDROX 2400MG/30ML ORAL SUSPENSION 30 ML CUP PO PRN (21:08)
[2019-07-16] MEDS ORDERED: MENTHOL/PHENOL 1 EACH UD MM PRN (21:08)
[2019-07-16] MEDS ORDERED: MELATONIN 5 MG TABLETS PO PRN (21:08)
[2019-07-16] MEDS ORDERED: MAG HYDROX/AL HYDROX/SIMETH 30 ML UNIT-DOSE CUP PO PRN (21:08)
[2019-07-16] MEDS ORDERED: IBUPROFEN 400 MG TABLET (FP) PO PRN (21:08)
[2019-07-16] MEDS ORDERED: MAGNESIUM CITRATE 300 ML BOTTLE PO PRN (21:08)
[2019-07-16] MEDS ORDERED: ACETAMINOPHEN 325 MG TABLET (FP) PO PRN ×2 (21:08)
[2019-07-16] MEDS ORDERED: BISMUTH SUBSALICYLATE 524 MG/30 ML UD PO PRN (21:08)
[2019-07-16] MEDS ORDERED: NICOTINE POLACRILEX 2 MG GUM BUC PRN (21:08)
[2019-07-16] MEDS ORDERED: chlordiazePOXIDE HCL 25 MG CAPSULE PO PRN (21:08)
[2019-07-16] MEDS ORDERED: THIAMINE HCL 100 MG TABLET (FP) PO SCH (22:00)
[2019-07-16] MEDS: chlordiazePOXIDE HCL 25 MG CAPSULE PO SCH (23:12)
[2019-07-17] MEDS: chlordiazePOXIDE HCL 25 MG CAPSULE PO SCH (05:25)
[2019-07-17 06:04] VITALS: BP 103/57; PULSE 75; TEMP 97.7
[2019-07-17 09:18] LABS: HEMATOCRIT 36.8 % (35.4-49); HEMOGLOBIN 12.8 GM/dL (11.7-16.9); MCH 36.5 pg (25.7-33.7); MCHC 34.6 g/dl (32.0-35.9); MEAN CELL VOLUME 105.5 fl (80-96); MEAN PLT VOLUME 8.4 fl (7.5-11.1); PLATELET COUNT 167 K/MM3 (134-434); RBC 3.49 M/mm3 (4.00-5.60); RDW 14.6 % (11.9-15.9); WHITE BLOOD COUNT 4.7 K/mm3 (4.0-10.0)
[2019-07-17 09:30] LABS: ALBUMIN 3.3 g/dl (3.4-5.0); BILIRUBIN,TOTAL 0.2 mg/dL (0.2-1); BLOOD UREA NITROGEN 9.1 mg/dL (7-18); CALCIUM 8.5 mg/dL (8.5-10.1); POTASSIUM 3.8 mmol/L (3.5-5.1); TOT PROT 6.4 g/dl (6.4-8.2)
[2019-07-17] MEDS ORDERED: PRENATAL VITAMINS W/ FOLIC ACID TABLET (FP) PO SCH (10:00)
[2019-07-17] MEDS ORDERED: NICOTINE 14 MG/24 HOURS TOPICAL PATCH TD SCH (10:00)
--- NOTE | 2019-07-17 14:25 | DS ---
[facility] Detox Discharge Summary Admission Date: 07/16/19 Discharge Date: 07/17/19 - History Present History: Alcohol Dependence, Cannabis Dependence, Cocaine Dependence Additional Comments: Patient demanded to leave AMA despite encouragement to complete detox. Patient stated, "I got an emergency." Patient instructed to call [phone] if feeling sick or withdrawal sxs and to see his PCP within 3 days in which he verbalized understanding. Pertinent Past History: Nicotine dependence Alcohol dependence Cannabis dependence Cocaine dependence Opioid abuse Sedative abuse History of Bronson parkinson syndrome (WPW) - Physical Exam Results Vital Signs: Vital Signs Temperature 97.7 F 07/17/19 06:03 Pulse Rate 75 07/17/19 06:03 Respiratory Rate 18 07/17/19 06:03 Blood Pressure 103/57 L 07/17/19 06:03 O2 Sat by Pulse Oximetry (%) Pertinent Admission Physical Exam Findings: Withdrawal sxs Laboratory Tests 07/17/19 07/17/19 07:50 07:50 WBC 4.7 RBC 3.49 L Hgb 12.8 Hct 36.8 MCV 105.5 H MCH 36.5 H MCHC 34.6 RDW 14.6 D Plt Count 167 MPV 8.4 Sodium 141 Potassium 3.8 Chloride 107 Carbon Dioxide 29 Anion Gap 5 L BUN 9.1 Creatinine 1.0 Est GFR (CKD-EPI)AfAm 110.17 Est GFR (CKD-EPI)NonAf 95.05 Random Glucose 79 Calcium 8.5 Total Bilirubin 0.2 AST 51 H ALT 37 Alkaline Phosphatase 87 Total Protein 6.4 Albumin 3.3 L Labs reviewed: albumin 3.3 (low), encouraged protein intake - Medication Discharge Medications: Ambulatory Orders NK [No Known Home Medication] 04/23/19 - Diagnosis (1) Cocaine dependence Status: Chronic (2) Opioid abuse Status: Acute (3) Sedative abuse Status: Acute (4) Alcohol dependence with uncomplicated withdrawal Status: Acute (5) Cannabis abuse, uncomplicated Status: Chronic (6) Cannabis dependence Status: Chronic (7) Nicotine dependence Status: Chronic Qualifiers: Nicotine product type: cigarettes Substance use status: uncomplicated Qualified Code(s): F17.210 - Nicotine dependence, cigarettes, uncomplicated (8) History of Bneyn-Iuncuiadb-Fwjtq (WPW) syndrome Status: Chronic (9) Hypoalbuminemia Status: Acute - AMA Did Patient Leave Against Medical Advice: Yes (Instructed to call 911 if sick/ withdrawal sxs and to see PCP within 3 days)
[2019-07-18] MEDS ORDERED: chlordiazePOXIDE HCL 25 MG CAPSULE PO SCH (05:00)
[2019-07-19] MEDS ORDERED: chlordiazePOXIDE HCL 10 MG CAPSULE PO PRN
[2019-07-19] MEDS ORDERED: chlordiazePOXIDE HCL 10 MG CAPSULE PO SCH (05:00)
[2019-07-20] MEDS ORDERED: chlordiazePOXIDE HCL 10 MG CAPSULE PO SCH (05:00)
[2019-07-21] MEDS ORDERED: chlordiazePOXIDE HCL 10 MG CAPSULE PO ONE (05:00)
== END 2019-07-17 08:40 | disposition left against medical advice (07) | DRG 770 ==
LOC: YASAS 13:06 → Y6N 21:36
PROVIDERS: ADMIT Allergy & Immunology; ATTEND Allergy & Immunology
PROC: HZ2ZZZZ Detoxification Services for Substance Abuse Treatment (ICD-10-PCS; principal; 2019-07-16)
DX: F10.230 Alcohol dependence with withdrawal, uncomplicated (principal); F10.220 Alcohol dependence with intoxication, uncomplicated; F13.230 Sedative, hypnotic or anxiolytic dependence with withdrawal, uncomplicated; F11.10 Opioid abuse, uncomplicated; F12.10 Cannabis abuse, uncomplicated; F17.210 Nicotine dependence, cigarettes, uncomplicated; I45.6 Pre-excitation syndrome; R77.0 Abnormality of albumin; R63.8 Other symptoms and signs concerning food and fluid intake; H55.00 Unspecified nystagmus
CPT/HCPCS: 36415; 80053; 85027

== ENCOUNTER 2022-03-03 21:53 | Inpatient (IN) | payer OTHER ==
[2022-03-03] MEDS ORDERED: ACETAMINOPHEN 325 MG TABLET (FP) PO PRN ×2 (23:32)
[2022-03-03] MEDS ORDERED: MAGNESIUM CITRATE 300 ML BOTTLE PO PRN (23:32)
[2022-03-03] MEDS ORDERED: BISMUTH SUBSALICYLATE 524 MG/30 ML PO PRN (23:32)
[2022-03-03] MEDS ORDERED: MAGNESIUM HYDROX 2400MG/30ML ORAL SUSPENSION 30 ML CUP PO PRN (23:32)
[2022-03-03] MEDS ORDERED: LOPERAMIDE HCL 2 MG CAPSULE PO PRN (23:32)
[2022-03-03] MEDS ORDERED: MAG HYDROX/AL HYDROX/SIMETH 30 ML UNIT-DOSE CUP PO PRN (23:32)
[2022-03-03] MEDS ORDERED: BENZOCAINE/MENTHOL (CHLORASEPTIC ) LOZENGE MM PRN (23:32)
[2022-03-03] MEDS ORDERED: ONDANSETRON *ODT* 4 MG TABLET SL PRN (23:32)
[2022-03-03] MEDS ORDERED: P-EPHED 60MG/TRIPROLIDI 2.5MG TABLET PO PRN (23:32)
[2022-03-03] MEDS ORDERED: DICYCLOMINE HCL 10 MG CAPSULE PO PRN (23:32)
[2022-03-03] MEDS ORDERED: MELATONIN 5 MG TABLETS PO PRN (23:32)
[2022-03-03] MEDS ORDERED: NICOTINE POLACRILEX 2 MG GUM BUC PRN (23:32)
[2022-03-03] MEDS ORDERED: IBUPROFEN 600 MG TABLET (FP) PO PRN (23:32)
[2022-03-03] MEDS ORDERED: IBUPROFEN 400 MG TABLET (FP) PO PRN (23:32)
[2022-03-03 23:41] VITALS: BMI 24.9
[2022-03-03] MEDS ORDERED: METOPROLOL TARTRATE 25 MG TABLET (FP) PO ONE (23:46)
[2022-03-04] MEDS: diazePAM 5 MG TABLET PO PRN (00:32)
[2022-03-04] MEDS: hydrOXYzine PAMOATE 25 MG CAPSULE (FP) PO PRN (00:32)
[2022-03-04] MEDS: METHOCARBAMOL 500 MG TABLET PO PRN ×2 (00:32→10:13)
[2022-03-04] MEDS: diazePAM 5 MG TABLET PO SCH ×5 (00:47→22:28)
[2022-03-04 09:49] LABS: HEMATOCRIT 39.4 % (35.4-49); HEMOGLOBIN 13.1 GM/dL (11.7-16.9); MCH 33.5 pg (25.7-33.7); MCHC 33.3 g/dl (32.0-35.9); MEAN CELL VOLUME 100.5 fl (80-96); MEAN PLT VOLUME 7.9 fl (7.5-11.1); PLATELET COUNT 203 10^3/uL (134-434); RBC 3.92 M/mm3 (4.00-5.60); RDW 13.2 % (11.9-15.9); WHITE BLOOD COUNT 5.9 K/mm3 (4.0-10.0)
[2022-03-04] MEDS: PRENATAL VITAMINS W/ FOLIC ACID TABLET (FP) PO SCH (10:13)
[2022-03-04 10:26] LABS: CALCIUM 8.6 mg/dL (8.5-10.1)
[2022-03-04 10:27] LABS: ALBUMIN 3.6 g/dl (3.4-5.0); BLOOD UREA NITROGEN 17.1 mg/dL (7-18)
[2022-03-04 10:30] LABS: CREATININE 0.9 mg/dL (0.55-1.3)
[2022-03-04 10:31] LABS: BILIRUBIN,TOTAL 0.4 mg/dL (0.2-1)
[2022-03-04 10:33] LABS: TOT PROT 7.2 g/dl (6.4-8.2)
[2022-03-04] MEDS: NICOTINE 10 MG CARTRIDGE (INHALER) IH PRN (20:16)
[2022-03-04] MEDS ORDERED: THIAMINE HCL 100 MG TABLET (FP) PO SCH (22:00)
[2022-03-05] MEDS ORDERED: diazePAM 5 MG TABLET PO SCH (06:00)
[2022-03-05] MEDS: NICOTINE 10 MG CARTRIDGE (INHALER) IH PRN (10:26)
[2022-03-05] MEDS: PRENATAL VITAMINS W/ FOLIC ACID TABLET (FP) PO SCH (10:26)
[2022-03-05] MEDS: hydrOXYzine PAMOATE 25 MG CAPSULE (FP) PO PRN (10:26)
[2022-03-05] MEDS: diazePAM 5 MG TABLET PO PRN (10:26)
[2022-03-05 13:17] VITALS: BP 143/95; PULSE 94; TEMP 98.2
[2022-03-06] MEDS ORDERED: diazePAM 5 MG TABLET PO SCH (06:00)
[2022-03-07] MEDS ORDERED: diazePAM 5 MG TABLET PO ONE (06:00)
== END 2022-03-05 13:26 | disposition left against medical advice (07) | DRG 770 ==
LOC: YASAS 21:53 → Y3N 23:49
PROVIDERS: ADMIT Allergy & Immunology; ATTEND Surgery
PROC: HZ2ZZZZ Detoxification Services for Substance Abuse Treatment (ICD-10-PCS; principal; 2022-03-03)
DX: F10.230 Alcohol dependence with withdrawal, uncomplicated (principal); F10.220 Alcohol dependence with intoxication, uncomplicated; F14.10 Cocaine abuse, uncomplicated; F12.20 Cannabis dependence, uncomplicated; F17.210 Nicotine dependence, cigarettes, uncomplicated
CPT/HCPCS: 36415; 80053; 85027; 86780

== ENCOUNTER 2023-03-06 10:41 | Inpatient (IN) | payer OTHER ==
[2023-03-06 11:27] VITALS: BMI 21.9
[2023-03-06] MEDS ORDERED: IBUPROFEN 600 MG TABLET (FP) PO PRN (11:43)
[2023-03-06] MEDS ORDERED: NICOTINE POLACRILEX 2 MG GUM BUC PRN (11:43)
[2023-03-06] MEDS ORDERED: DICYCLOMINE HCL 10 MG CAPSULE PO PRN (11:43)
[2023-03-06] MEDS ORDERED: BENZONATATE 200 MG CAPSULE PO PRN (11:43)
[2023-03-06] MEDS ORDERED: IBUPROFEN 400 MG TABLET (FP) PO PRN (11:43)
[2023-03-06] MEDS ORDERED: BISMUTH SUBSALICYLATE 262 MG/15 ML BTL PO PRN (11:43)
[2023-03-06] MEDS ORDERED: NALOXONE HCL (KLOXXADO) 8 MG SPRAY NS PRN (11:43)
[2023-03-06] MEDS ORDERED: COLLOIDAL OATMEAL 1 BAR EACH TP PRN (11:43)
[2023-03-06] MEDS ORDERED: MAG HYDROX/AL HYDROX/SIMETH 30 ML UNIT-DOSE CUP PO PRN (11:43)
[2023-03-06] MEDS ORDERED: AMMONIUM LACTATE 12% LOTION 225 GM BOTTLE TP PRN (11:43)
[2023-03-06] MEDS ORDERED: MAGNESIUM HYDROX 2400MG/30ML ORAL SUSPENSION 30 ML CUP PO PRN (11:43)
[2023-03-06] MEDS ORDERED: ONDANSETRON *ODT* 4 MG TABLET SL PRN (11:43)
[2023-03-06] MEDS ORDERED: LOPERAMIDE HCL 2 MG CAPSULE PO PRN (11:43)
[2023-03-06] MEDS ORDERED: ACETAMINOPHEN 325 MG TABLET (FP) PO PRN (11:43)
[2023-03-06] MEDS ORDERED: guaiFENesin 600 MG TABLET.ER (FP) PO PRN (11:43)
[2023-03-06] MEDS ORDERED: POLYETHYLENE GLYCOL (HEALTHYLAX) 3350 17 GM PACKET PO PRN (11:43)
[2023-03-06] MEDS ORDERED: BENZOCAINE/MENTHOL (CHLORASEPTIC ) LOZENGE MM PRN (11:43)
[2023-03-06] MEDS ORDERED: NALOXONE HCL 0.4 MG/ML VIAL IM PRN (11:43)
[2023-03-06] MEDS ORDERED: NICOTINE 10 MG CARTRIDGE (INHALER) IH PRN (11:43)
[2023-03-06] MEDS: NICOTINE 21 MG/24 HOURS TOPICAL PATCH TD SCH (13:01)
[2023-03-06 14:32] LABS: HEMATOCRIT 37.6 % (35.4-49); HEMOGLOBIN 12.3 GM/dL (11.7-16.9); MCH 32.3 pg (25.7-33.7); MCHC 32.6 g/dl (32.0-35.9); MEAN PLT VOLUME 7.9 fl (7.5-11.1); PLATELET COUNT 156 10^3/uL (134-434); WHITE BLOOD COUNT 5.1 K/mm3 (4.0-10.0)
[2023-03-06 14:45] LABS: POTASSIUM 3.8 mmol/L (3.5-5.1)
[2023-03-06 15:01] LABS: BILIRUBIN,TOTAL 0.3 mg/dL (0.2-1)
[2023-03-06 15:08] LABS: BLOOD UREA NITROGEN 14.6 mg/dL (7-18); CALCIUM 9.6 mg/dL (8.5-10.1)
[2023-03-06 15:12] LABS: CREATININE 0.9 mg/dL (0.55-1.3)
[2023-03-06 15:13] LABS: TOT PROT 7.9 g/dl (6.4-8.2)
[2023-03-06] MEDS: MELATONIN 5 MG TABLETS PO SCH (22:59)
[2023-03-06] MEDS: THIAMINE HCL 100 MG TABLET (FP) PO SCH (22:59)
[2023-03-07] MEDS ORDERED: chlordiazePOXIDE HCL 25 MG CAPSULE PO PRN (09:44)
[2023-03-07] MEDS: PRENATAL VITAMINS W/ FOLIC ACID TABLET (FP) PO SCH (10:01)
[2023-03-07] MEDS: NICOTINE 21 MG/24 HOURS TOPICAL PATCH TD SCH (10:01)
[2023-03-07] MEDS: chlordiazePOXIDE HCL 25 MG CAPSULE PO SCH ×3 (11:09→22:56)
[2023-03-07] MEDS: LACTULOSE 20 GM/30 ML UDC (FOR ORAL USE ONLY) PO SCH ×2 (14:44→22:53)
[2023-03-07] MEDS: hydrOXYzine PAMOATE 25 MG CAPSULE (FP) PO PRN (22:56)
[2023-03-07] MEDS: METHOCARBAMOL 500 MG TABLET PO PRN (22:56)
[2023-03-07] MEDS: THIAMINE HCL 100 MG TABLET (FP) PO SCH (22:56)
[2023-03-07] MEDS: MELATONIN 5 MG TABLETS PO SCH (22:56)
[2023-03-08] MEDS: chlordiazePOXIDE HCL 10 MG CAPSULE PO SCH ×4 (05:50→22:39)
[2023-03-08] MEDS: LACTULOSE 20 GM/30 ML UDC (FOR ORAL USE ONLY) PO SCH ×3 (05:51→22:38)
[2023-03-08] MEDS: PRENATAL VITAMINS W/ FOLIC ACID TABLET (FP) PO SCH (10:23)
[2023-03-08] MEDS: NICOTINE 21 MG/24 HOURS TOPICAL PATCH TD SCH (10:23)
[2023-03-08] MEDS: THIAMINE HCL 100 MG TABLET (FP) PO SCH (22:36)
[2023-03-08] MEDS: MELATONIN 5 MG TABLETS PO SCH (22:36)
[2023-03-08] MEDS: hydrOXYzine PAMOATE 25 MG CAPSULE (FP) PO PRN (22:38)
[2023-03-08] MEDS: METHOCARBAMOL 500 MG TABLET PO PRN (22:38)
[2023-03-09] MEDS: chlordiazePOXIDE HCL 10 MG CAPSULE PO SCH ×2 (05:47→17:33)
[2023-03-09] MEDS: LACTULOSE 20 GM/30 ML UDC (FOR ORAL USE ONLY) PO SCH ×3 (05:47→22:35)
[2023-03-09] MEDS: PRENATAL VITAMINS W/ FOLIC ACID TABLET (FP) PO SCH (09:46)
[2023-03-09] MEDS: NICOTINE 21 MG/24 HOURS TOPICAL PATCH TD SCH (09:46)
[2023-03-09] MEDS: THIAMINE HCL 100 MG TABLET (FP) PO SCH (22:35)
[2023-03-09] MEDS: MELATONIN 5 MG TABLETS PO SCH (22:35)
[2023-03-10] MEDS ORDERED: chlordiazePOXIDE HCL 10 MG CAPSULE PO PRN
[2023-03-10] MEDS ORDERED: chlordiazePOXIDE HCL 10 MG CAPSULE PO ONE (05:00)
[2023-03-10] MEDS: LACTULOSE 20 GM/30 ML UDC (FOR ORAL USE ONLY) PO SCH (06:06)
[2023-03-10 06:15] VITALS: RESP 16
[2023-03-10 09:47] VITALS: BP 139/92; PULSE 90; TEMP 98.8
[2023-03-10] MEDS: PRENATAL VITAMINS W/ FOLIC ACID TABLET (FP) PO SCH (09:57)
[2023-03-10] MEDS: NICOTINE 21 MG/24 HOURS TOPICAL PATCH TD SCH (09:57)
== END 2023-03-10 09:51 | disposition home or self-care (01) | DRG 775 ==
LOC: YASAS 10:41 → Y6N 12:00 → Y3N 15:06
PROVIDERS: ADMIT Allergy & Immunology; ATTEND Surgery
PROC: HZ2ZZZZ Detoxification Services for Substance Abuse Treatment (ICD-10-PCS; principal; 2023-03-06)
DX: F10.230 Alcohol dependence with withdrawal, uncomplicated (principal); F12.20 Cannabis dependence, uncomplicated; F17.210 Nicotine dependence, cigarettes, uncomplicated; E72.20 Disorder of urea cycle metabolism, unspecified; Z20.822 Contact with and (suspected) exposure to COVID-19
CPT/HCPCS: 36415; 80053; 82140; 85027; 86780; 87635